=== PATIENT | female | born 1995 | race Caucasian/White ===

== ENCOUNTER 2020-07-20 13:17 | Inpatient (IN) | payer OTHER ==
[~2020-07-20 13:17] MED LIST: Morphine 4 MG/ML Syringe IVPUSH ONE; Ondansetron 4 MG/2 ML SDV IVPUSH ONE; Sodium Chloride 0.9% 1,000 ML IV ONE; Sodium Chloride 0.9% 10 ML Syringe FLUSH PRN; Sodium Chloride 0.9% 2.5 ML Syringe FLUSH PRN
--- NOTE | 2020-07-20 13:21 | EDM.PDOC ---
ED HPI GENERAL MEDICAL PROBLEM - General Chief Complaint: Abdominal Pain Stated Complaint: PANCREATITIS Time Seen by Provider: 07/20/20 13:17 Source of Information: Reports: Patient History Limitations: Reports: No Limitations - History of Present Illness INITIAL COMMENTS - FREE TEXT/NARRATIVE: 24-year-old female past medical history recurrent pancreatitis presents for midepigastric abdominal pain consistent with prior episodes of pancreatitis. Patient states that she has had this since she was 7 years old on and off. She notes that she has had several work-ups including endoscopies and scans and nobody can tell her why she keeps getting pancreatitis. She has never had abdominal surgeries and still has her gallbladder and appendix. She notes that last night she was feeling okay and had "1 sip of alcohol". Woke up this morning with pain in her midepigastrium radiating to bilateral upper abdomen and back. Associated with nausea and vomiting. No fevers, chest pain, shortness of breath. abdomen Pain Score (Numeric/FACES): 8 - Related Data Allergies Allergy/AdvReac Type Severity Reaction Status Date / Time No Known Allergies Allergy Verified 07/20/20 15:23 Home Meds: Home Meds . [No Known Home Meds] 07/20/20 [History] ED ROS GENERAL - Review of Systems Review Of Systems: Comprehensive ROS is negative, except as noted in HPI. ED EXAM, GENERAL - Physical Exam Exam: See Below Exam Limited By: No Limitations General Appearance: Alert, WD/WN, Other (Uncomfortable appearing) Throat/Mouth: Normal Voice, No Airway Compromise Head: Atraumatic, Normocephalic Neck: Normal Inspection Respiratory/Chest: No Respiratory Distress, Lungs Clear, Normal Breath Sounds, No Accessory Muscle Use Cardiovascular: Normal Peripheral Pulses, Regular Rate, Rhythm GI/Abdominal: Soft, Other (Midepigastric tenderness to palpation without guarding) Extremities: Normal Inspection Neurological: Alert Psychiatric: Normal Affect, Normal Mood Skin Exam: Warm, Dry, Intact, Normal Color Course - Vital Signs Last Recorded V/S: Last Vital Signs Temp 97.3 F 07/20/20 13:25 Pulse 65 07/20/20 15:16 Resp 18 07/20/20 15:16 BP 110/66 07/20/20 15:16 Pulse Ox 100 07/20/20 15:16 - Orders/Labs/Meds Orders: Active Orders 24 hr Category Date Time Status Sodium Chloride 0.9% [Normal Saline] 1,000 ml Med 07/20/20 16:13 Ordered IV .Bolus Sodium Chloride 0.9% [Saline Flush] Med 07/20/20 13:17 Active 10 ml FLUSH ASDIRECTED PRN Sodium Chloride 0.9% [Saline Flush] Med 07/20/20 13:17 Active 2.5 ml FLUSH ASDIRECTED PRN Saline Lock Insert [OM.PC] Stat Oth 07/20/20 13:17 Ordered Medication Orders Sodium Chloride (Saline Flush) 10 ml FLUSH ASDIRECTED PRN PRN Reason: Keep Vein Open Last Admin: 07/20/20 14:52 Dose: 10 ml Documented by: ANTONIO Sodium Chloride (Saline Flush) 2.5 ml FLUSH ASDIRECTED PRN PRN Reason: Keep Vein Open Last Admin: 07/20/20 14:51 Dose: 2.5 ml Documented by: [id number] Labs: Laboratory Tests 07/20/20 07/20/20 07/20/20 Range/Units 13:33 13:33 13:33 WBC 12.48 H (4.0-11.0) K/uL RBC 5.46 (4.30-5.90) M/uL Hgb 14.4 (12.0-16.0) g/dL Hct 44.8 (36.0-46.0) % MCV 82.1 (80.0-98.0) fL MCH 26.4 L (27.0-32.0) pg MCHC 32.1 (31.0-37.0) g/dL RDW Std Deviation 42.3 (28.0-62.0) fl RDW Coeff of Maryam 14 (11.0-15.0) % Plt Count 189 (150-400) K/uL MPV 9.60 (7.40-12.00) fL Neut % (Auto) 70.3 (48.0-80.0) % Lymph % (Auto) 18.1 (16.0-40.0) % [place] % (Auto) 8.8 (0.0-15.0) % Eos % (Auto) 2.6 (0.0-7.0) % Baso % (Auto) 0.2 (0.0-1.5) % Neut # (Auto) 8.8 H (1.4-5.7) K/uL Lymph # (Auto) 2.3 (0.6-2.4) K/uL [place] # (Auto) 1.1 H (0.0-0.8) K/uL Eos # (Auto) 0.3 (0.0-0.7) K/uL Baso # (Auto) 0.0 (0.0-0.1) K/uL Nucleated RBC % 0.0 /100WBC Nucleated RBCs # 0 K/uL Lactate 1.3 (0.20-2.00) mmol/L Sodium 142 (136-145) mmol/L Potassium 3.8 (3.5-5.1) mmol/L Chloride 105 (98-107) mmol/L Carbon Dioxide 26.3 (21.0-32.0) mmol/L BUN 12 (7.0-18.0) mg/dL Creatinine 0.9 (0.6-1.0) mg/dL Est Cr Clr Drug Dosing TNP Estimated GFR (MDRD) > 60.0 ml/min Glucose 96 (74-106) mg/dL Calcium 9.3 (8.5-10.1) mg/dL Magnesium 1.8 (1.8-2.4) mg/dL Total Bilirubin 0.7 (0.2-1.0) mg/dL AST 34 (15-37) IU/L ALT 76 H (14-63) IU/L Alkaline Phosphatase 88 (46-116) U/L Total Protein 7.5 (6.4-8.2) g/dL Albumin 4.1 (3.4-5.0) g/dL Globulin 3.4 (2.6-4.0) g/dL Albumin/Globulin Ratio 1.2 (0.9-1.6) Triglycerides (0-200) mg/dL Lipase 07623 H (73-393) U/L HCG, Qual (NEG) SARS-CoV-2 RNA (JADA) (NEGATIVE) 07/20/20 07/20/20 07/20/20 Range/Units 13:33 13:33 15:25 WBC (4.0-11.0) K/uL RBC (4.30-5.90) M/uL Hgb (12.0-16.0) g/dL Hct (36.0-46.0) % MCV (80.0-98.0) fL MCH (27.0-32.0) pg MCHC (31.0-37.0) g/dL RDW Std Deviation (28.0-62.0) fl RDW Coeff of Maryam (11.0-15.0) % Plt Count (150-400) K/uL MPV (7.40-12.00) fL Neut % (Auto) (48.0-80.0) % Lymph % (Auto) (16.0-40.0) % [place] % (Auto) (0.0-15.0) % Eos % (Auto) (0.0-7.0) % Baso % (Auto) (0.0-1.5) % Neut # (Auto) (1.4-5.7) K/uL Lymph # (Auto) (0.6-2.4) K/uL [place] # (Auto) (0.0-0.8) K/uL Eos # (Auto) (0.0-0.7) K/uL Baso # (Auto) (0.0-0.1) K/uL Nucleated RBC % /100WBC Nucleated RBCs # K/uL Lactate (0.20-2.00) mmol/L Sodium (136-145) mmol/L Potassium (3.5-5.1) mmol/L Chloride (98-107) mmol/L Carbon Dioxide (21.0-32.0) mmol/L BUN (7.0-18.0) mg/dL Creatinine (0.6-1.0) mg/dL Est Cr Clr Drug Dosing Estimated GFR (MDRD) ml/min Glucose (74-106) mg/dL Calcium (8.5-10.1) mg/dL Magnesium (1.8-2.4) mg/dL Total Bilirubin (0.2-1.0) mg/dL AST (15-37) IU/L ALT (14-63) IU/L Alkaline Phosphatase (46-116) U/L Total Protein (6.4-8.2) g/dL Albumin (3.4-5.0) g/dL Globulin (2.6-4.0) g/dL Albumin/Globulin Ratio (0.9-1.6) Triglycerides 210 H (0-200) mg/dL Lipase (73-393) U/L HCG, Qual NEGATIVE (NEG) SARS-CoV-2 RNA (JADA) NEGATIVE (NEGATIVE) Meds: Medications Generic Name Dose Route Start Last Admin Trade Name Michael PRN Reason Stop Dose Admin Sodium Chloride 10 ml 07/20/20 13:17 07/20/20 14:52 Saline Flush FLUSH 10 ml ASDIRECTED PRN Administration Keep Vein Open Sodium Chloride 2.5 ml 07/20/20 13:17 07/20/20 14:51 Saline Flush FLUSH 2.5 ml ASDIRECTED PRN Administration Keep Vein Open Discontinued Medications Generic Name Dose Route Start Last Admin Trade Name Masonq PRN Reason Stop Dose Admin Hydromorphone HCl 1 mg 07/20/20 14:45 07/20/20 14:50 Dilaudid IVPUSH 07/20/20 14:46 1 mg ONETIME ONE Administration Hydromorphone HCl 1 mg 07/20/20 15:11 07/20/20 15:15 Dilaudid IVPUSH 07/20/20 15:12 1 mg ONETIME ONE Administration Sodium Chloride 1,000 mls @ 999 mls/hr 07/20/20 13:17 07/20/20 13:34 Normal Saline IV 07/20/20 14:17 999 mls/hr .Bolus ONE Administration Iopamidol 72 ml 07/20/20 14:42 07/20/20 14:42 Isovue Multipack-370 (76%) IVPUSH 07/20/20 14:43 72 ml ONETIME ONE Administration Morphine Sulfate 4 mg 07/20/20 13:17 07/20/20 13:37 Morphine IVPUSH 07/20/20 13:18 4 mg ONETIME ONE Administration Ondansetron HCl 4 mg 07/20/20 13:17 07/20/20 13:35 Zofran IVPUSH 07/20/20 13:18 4 mg ONETIME ONE Administration - Re-Assessments/Exams Free Text/Narrative Re-Assessment/Exam: 07/20/20 13:33 We will get abdominal labs. Will get CT abdomen pelvis. Will treat pain and nausea symptomatically. We will follow up results and disposition accordingly. 07/20/20 14:55 Patient's pain poorly controlled. 1 mg Dilaudid ordered for better control of pain. 07/20/20 16:14 Will admit for pain control Departure - Departure Time of Disposition: 16:14 Disposition: Admitted As Inpatient 66 Condition: Good (pancreatiti) Clinical Impression: Pancreatitis Qualifiers: Chronicity: acute Pancreatitis type: unspecified pancreatitis type Acute pancreatitis complication: unspecified Qualified Code(s): K85.90 - Acute pancreatitis without necrosis or infection, unspecified - Discharge Information Referrals: PCP,Not In Area [Primary Care Provider] - Forms: ED Department Discharge Sepsis Event Note (ED) - Focused Exam Vital Signs: Vital Signs Temp Pulse Resp BP Pulse Ox 07/20/20 15:16 65 18 110/66 100 07/20/20 13:25 97.3 F 68 17 120/82 98 - My Orders Last 24 Hours: My Active Orders 07/20/20 13:17 Sodium Chloride 0.9% [Saline Flush] 10 ml FLUSH ASDIRECTED PRN Sodium Chloride 0.9% [Saline Flush] 2.5 ml FLUSH ASDIRECTED PRN Saline Lock Insert [OM.PC] Stat 07/20/20 16:13 Sodium Chloride 0.9% [Normal Saline] 1,000 ml IV .Bolus - Assessment/Plan Last 24 Hours: My Active Orders 07/20/20 13:17 Sodium Chloride 0.9% [Saline Flush] 10 ml FLUSH ASDIRECTED PRN Sodium Chloride 0.9% [Saline Flush] 2.5 ml FLUSH ASDIRECTED PRN Saline Lock Insert [OM.PC] Stat 07/20/20 16:13 Sodium Chloride 0.9% [Normal Saline] 1,000 ml IV .Bolus
[2020-07-20 14:02] LABS: BLOOD UREA NITROGEN,BUN 12 mg/dL (7.0-18.0); CARBON DIOXIDE,CO2 26.3 mmol/L (21.0-32.0); CHLORIDE,CL 105 mmol/L (98-107); GLUCOSE RANDOM 96 mg/dL (74-106); POTASSIUM,K 3.8 mmol/L (3.5-5.1); SODIUM,NA 142 mmol/L (136-145)
[2020-07-20] MEDS ORDERED: Iopamidol 755 MG/ML 500 ML Multipack Bottle IVPUSH ONE (14:42)
[2020-07-20] MEDS ORDERED: HYDROmorphone 1 MG/ML Syringe IVPUSH ONE ×3 (14:45→17:13)
--- NOTE | 2020-07-20 15:07 | CT ---
INDICATION: Abdominal pain, history of recurrent pancreatitis. One month . TECHNIQUE: IV contrast-enhanced CT abdomen and pelvis. 72 mL Isovue-270 injected. FINDINGS: Fluid and inflammatory change around the pancreas consistent with acute pancreatitis. No evidence for parenchymal necrosis. No evidence for pseudocyst. No pancreatic duct or biliary dilation. Gallbladder is normal. Liver, spleen, adrenal glands, kidneys appear normal. Bowel is unremarkable. No free air or adenopathy. Uterus and adnexa are unremarkable. IMPRESSION: Acute pancreatitis. Please note that all CT scans at this facility use dose modulation, iterative reconstruction, and/or weight-based dosing when appropriate to reduce radiation dose to as low as reasonably achievable. Dictated by Feliberto Mcleod MD @ Jul 20 2020 3:05PM Signed by Dr. Feliberto Mcleod @ Jul 20 2020 3:05PM
[2020-07-20 15:19] LABS: LIPASE 49342 U/L (73-393)
[2020-07-20] MEDS ORDERED: Sodium Chloride 0.9% 1,000 ML IV ONE ×3 (16:13→19:21)
--- NOTE | 2020-07-20 16:29 | PCM.HP.2 ---
H&P History of Present Illness - General Date of Service: 07/20/20 Admit Problem/Dx: Admission Diagnosis/Problem Admission Diagnosis/Problem Pancreatitis Source of Information: Patient History Limitations: Reports: No Limitations - History of Present Illness Initial Comments - Free Text/Narative: Patient is a 24-year-old female with a significant past medical history of recu rrent pancreatitis with no known etiology presenting to the ED with abdominal pain which she endorses feels similar to episodes of pancreatitis in the past.. Patient has had pancreatitis since the age of 7 and despite numerous exhaustive work-ups (in [place], [place]) including endoscopies and abdominal scans, no etiology could be discovered. Endorsed to ER physician no significant alcohol use but did have "one sip" last night. Patient otherwise denies any fevers, chills, chest pain, shortness of breath. Positive nausea and vomiting. ED course: CT abdomen pelvis: Consistent with acute pancreatitis without any evidence of parenchymal necrosis. No evidence of pseudocyst. No pancreatic duct/biliary dilation. Gallbladder is normal; bowel is unremarkable Received 2 L normal saline IV, +4 mg morphine x1 and hydromorphone 1 mg x 2 for pain control Bedside: Currently Nauseous but able to speak in full sentences. Endorses pain began this AM after eating 1/2 bowl of cereal. tried 2 tabs of Tylenol w. no relief. Mentions similar story as above Last major hospitalizations for pancreatitis was 12 years ago but has had numerous "smaller" episodes since then, mostly brought on by eating a fatty meal. Last heavy meal was last night; pt had "[place]" for dinner and "a sip of alcohol". Denies any significant family history and states she is otherwise in good shape. Denies use of prescription, illicit and or other drugs Denies any surgical procedures. abdomen Pain Score (Numeric/FACES): 8 - Related Data Allergies/Adverse Reactions: Allergies Allergy/AdvReac Type Severity Reaction Status Date / Time No Known Allergies Allergy Verified 07/20/20 15:23 Home Medications: Home Meds . [No Known Home Meds] 07/20/20 [History] Past Medical History Gastrointestinal History: Reports: Pancreatitis - Past Surgical History GI Surgical History: Reports: None Social & Family History - Family History Family Medical History: No Pertinent Family History - Tobacco Use Tobacco Use Status *Q: Never Tobacco User Second Hand Smoke Exposure: No - Caffeine Use Caffeine Use: Reports: None - Recreational Drug Use Recreational Drug Use: No H&P Review of Systems - Review of Systems: Review Of Systems: See Below General: Reports: No Symptoms HEENT: Reports: No Symptoms Pulmonary: Reports: No Symptoms Cardiovascular: Reports: No Symptoms Gastrointestinal: Reports: Abdominal Pain, Decreased Appetite, Nausea, Vomiting. Denies: Constipation, Diarrhea, Hematochezia Genitourinary: Reports: No Symptoms Musculoskeletal: Reports: No Symptoms Skin: Reports: No Symptoms Psychiatric: Reports: No Symptoms Neurological: Reports: No Symptoms. Denies: Dizziness, Headache Exam - Exam Exam: See Below - Vital Signs Vital Signs: Last Vital Signs Temp 97.3 F 07/20/20 13:25 Pulse 65 07/20/20 15:16 Resp 18 07/20/20 15:16 BP 110/66 07/20/20 15:16 Pulse Ox 100 07/20/20 15:16 Weight: 63 kg - Exam Quality Assessment: No: Supplemental Oxygen General: Alert, Oriented HEENT: EOMI, Mucosa Moist & [place] Neck: Supple Lungs: Clear to Auscultation, Normal Respiratory Effort Cardiovascular: Regular Rate, Regular Rhythm GI/Abdominal Exam: Other (diffuse tenderness w.o organomegaly ) Extremities: Normal Inspection Psychiatric: Alert - Patient Data Lab Results Last 24 hrs: Laboratory Results - last 24 hr 07/20/20 07/20/20 07/20/20 Range/Units 13:33 13:33 13:33 WBC 12.48 H (4.0-11.0) K/uL RBC 5.46 (4.30-5.90) M/uL Hgb 14.4 (12.0-16.0) g/dL Hct 44.8 (36.0-46.0) % MCV 82.1 (80.0-98.0) fL MCH 26.4 L (27.0-32.0) pg MCHC 32.1 (31.0-37.0) g/dL RDW Std Deviation 42.3 (28.0-62.0) fl RDW Coeff of Maryam 14 (11.0-15.0) % Plt Count 189 (150-400) K/uL MPV 9.60 (7.40-12.00) fL Neut % (Auto) 70.3 (48.0-80.0) % Lymph % (Auto) 18.1 (16.0-40.0) % [place] % (Auto) 8.8 (0.0-15.0) % Eos % (Auto) 2.6 (0.0-7.0) % Baso % (Auto) 0.2 (0.0-1.5) % Neut # (Auto) 8.8 H (1.4-5.7) K/uL Lymph # (Auto) 2.3 (0.6-2.4) K/uL [place] # (Auto) 1.1 H (0.0-0.8) K/uL Eos # (Auto) 0.3 (0.0-0.7) K/uL Baso # (Auto) 0.0 (0.0-0.1) K/uL Nucleated RBC % 0.0 /100WBC Nucleated RBCs # 0 K/uL Lactate 1.3 (0.20-2.00) mmol/L Sodium 142 (136-145) mmol/L Potassium 3.8 (3.5-5.1) mmol/L Chloride 105 (98-107) mmol/L Carbon Dioxide 26.3 (21.0-32.0) mmol/L BUN 12 (7.0-18.0) mg/dL Creatinine 0.9 (0.6-1.0) mg/dL Est Cr Clr Drug Dosing TNP Estimated GFR (MDRD) > 60.0 ml/min Glucose 96 (74-106) mg/dL Calcium 9.3 (8.5-10.1) mg/dL Magnesium 1.8 (1.8-2.4) mg/dL Total Bilirubin 0.7 (0.2-1.0) mg/dL AST 34 (15-37) IU/L ALT 76 H (14-63) IU/L Alkaline Phosphatase 88 (46-116) U/L Total Protein 7.5 (6.4-8.2) g/dL Albumin 4.1 (3.4-5.0) g/dL Globulin 3.4 (2.6-4.0) g/dL Albumin/Globulin Ratio 1.2 (0.9-1.6) Triglycerides (0-200) mg/dL Lipase 29686 H (73-393) U/L HCG, Qual (NEG) SARS-CoV-2 RNA (JADA) (NEGATIVE) 07/20/20 07/20/20 07/20/20 Range/Units 13:33 13:33 15:25 WBC (4.0-11.0) K/uL RBC (4.30-5.90) M/uL Hgb (12.0-16.0) g/dL Hct (36.0-46.0) % MCV (80.0-98.0) fL MCH (27.0-32.0) pg MCHC (31.0-37.0) g/dL RDW Std Deviation (28.0-62.0) fl RDW Coeff of Maryam (11.0-15.0) % Plt Count (150-400) K/uL MPV (7.40-12.00) fL Neut % (Auto) (48.0-80.0) % Lymph % (Auto) (16.0-40.0) % [place] % (Auto) (0.0-15.0) % Eos % (Auto) (0.0-7.0) % Baso % (Auto) (0.0-1.5) % Neut # (Auto) (1.4-5.7) K/uL Lymph # (Auto) (0.6-2.4) K/uL [place] # (Auto) (0.0-0.8) K/uL Eos # (Auto) (0.0-0.7) K/uL Baso # (Auto) (0.0-0.1) K/uL Nucleated RBC % /100WBC Nucleated RBCs # K/uL Lactate (0.20-2.00) mmol/L Sodium (136-145) mmol/L Potassium (3.5-5.1) mmol/L Chloride (98-107) mmol/L Carbon Dioxide (21.0-32.0) mmol/L BUN (7.0-18.0) mg/dL Creatinine (0.6-1.0) mg/dL Est Cr Clr Drug Dosing Estimated GFR (MDRD) ml/min Glucose (74-106) mg/dL Calcium (8.5-10.1) mg/dL Magnesium (1.8-2.4) mg/dL Total Bilirubin (0.2-1.0) mg/dL AST (15-37) IU/L ALT (14-63) IU/L Alkaline Phosphatase (46-116) U/L Total Protein (6.4-8.2) g/dL Albumin (3.4-5.0) g/dL Globulin (2.6-4.0) g/dL Albumin/Globulin Ratio (0.9-1.6) Triglycerides 210 H (0-200) mg/dL Lipase (73-393) U/L HCG, Qual NEGATIVE (NEG) SARS-CoV-2 RNA (JADA) NEGATIVE (NEGATIVE) Result Diagrams: 07/20/20 13:33 07/20/20 13:33 Sepsis Event Note - Evaluation Sepsis Screening Result: No Definite Risk - Focused Exam Vital Signs: Vital Signs Temp Pulse Resp BP Pulse Ox 07/20/20 15:16 65 18 110/66 100 07/20/20 13:25 97.3 F 68 17 120/82 98 - Problem List (1) Pancreatitis SNOMED Code(s): 71262328 ICD Code: K85.90 - ACUTE PANCREATITIS WITHOUT NECROSIS OR INFECTION, UNSP S tatus: Acute Current Visit: Yes Qualifiers: Chronicity: acute Pancreatitis type: unspecified pancreatitis type Acute pancreatitis complication: unspecified Qualified Code(s): K85.90 - Acute pancreatitis without necrosis or infection, unspecified Problem List Initiated/Reviewed/Updated: Yes Orders Last 24hrs: Active Orders 24 hr Category Date Time Status Patient Status [ADT] Routine ADT 07/20/20 16:14 Active Sodium Chloride 0.9% [Normal Saline] 1,000 ml Med 07/20/20 16:13 Active IV .Bolus Sodium Chloride 0.9% [Saline Flush] Med 07/20/20 13:17 Active 10 ml FLUSH ASDIRECTED PRN Sodium Chloride 0.9% [Saline Flush] Med 07/20/20 13:17 Active 2.5 ml FLUSH ASDIRECTED PRN Saline Lock Insert [OM.PC] Stat Oth 07/20/20 13:17 Ordered Medication Orders Sodium Chloride (Normal Saline) 1,000 mls @ 999 mls/hr IV .Bolus ONE Stop: 07/20/20 17:13 Sodium Chloride (Saline Flush) 10 ml FLUSH ASDIRECTED PRN PRN Reason: Keep Vein Open Last Admin: 07/20/20 14:52 Dose: 10 ml Documented by: ANTONIO Sodium Chloride (Saline Flush) 2.5 ml FLUSH ASDIRECTED PRN PRN Reason: Keep Vein Open Last Admin: 07/20/20 14:51 Dose: 2.5 ml Documented by: ANTONIO Assessment/Plan Comment:: Assessment: 1. Acute pancreatitis of unknown etiology 2. Leukocytosis 3. Hypertriglyceridemia. 4. Covid negative. Plan Admit to observation. Full code. I's and O's per routine. vitals per routine. NPO Up ad heaven. 1. Acute pancreatitis: CT abdomen pelvis did not show any other significant causes for pancreatitis at this time (stone or otherwise) ; will confirm w. RUQ u/s . We will continue with IV fluids, bowel rest and pain control. Ransons 0 BISAP 0 Fluids: NS 200 cc/hr (received 2 Liter NS bolus in ED) Pain control: Dilaudid 0.5 q 2hours Ibuprofen Leukocytosis: marginally elevated : most likely reactive in light of significant pancreatitis /dehydration ; continue to monitor Recheck CBC/CMP in AM. Will recheck Lipase once in AM to monitor for initial trend. Elevated triglycerides/Borderline high: elevated but does not seem to be the current etiology for her pancreatitis ; may consider fibric acid derivative if n ecessary but unlikely. No other easily identifiable causes except "fatty meal"/ dinner yesterday (e.g: no recent procedures, trauamas, ingestion of ilicit drugs per patient , infections No other significant PMH per patient.
[2020-07-20] MEDS ORDERED: Ondansetron 4 MG/2 ML SDV IVPUSH ONE ×2 (17:00→17:05)
[2020-07-20] MEDS ORDERED: Ondansetron 4 MG/2 ML SDV IVPUSH PRN (17:13)
[2020-07-20] MEDS ORDERED: HYDROmorphone 1 MG/ML Syringe IVPUSH PRN (17:14)
[2020-07-20] MEDS ORDERED: Promethazine 25 MG/ML SDV IM ONE (17:51)
[2020-07-20] MEDS: Heparin Sodium 5,000 Units/ML Vial SUBCUT SCH (18:03)
[2020-07-20] MEDS: Ibuprofen 400 MG Tab PO PRN (18:45)
[2020-07-20] MEDS ORDERED: LORazepam 2 MG/ML SDV IVPUSH ONE (18:52)
[2020-07-20] MEDS ORDERED: Promethazine 25 MG Tab PO PRN (18:57)
[2020-07-20] MEDS ORDERED: Melatonin 3 MG Tab PO PRN (18:58)
[2020-07-20] MEDS ORDERED: Promethazine 25 MG/ML SDV IM PRN (19:43)
--- NOTE | 2020-07-20 20:30 | US ---
INDICATION: Pancreatitis, elevated lipase, evaluate for right upper quadrant stone/biliary dilation. TECHNIQUE: Right upper quadrant ultrasound. COMPARISON: Abdomen pelvis CT of the same day. FINDINGS: The pancreas appears somewhat edematous compatible with patient`s known pancreatitis. Gallbladder is normal without stones, wall thickness, or pericholecystic fluid. Negative sonographic Martell`s sign. No intra or extrahepatic bile duct dilation. Common bile duct measures 2 mm. Right kidney is sonographically normal without mass or hydronephrosis and measures 11.4 cm pole to pole. Liver has normal echogenicity with no solid mass. Normal flow direction in the portal vein. Normal caliber proximal aorta. IMPRESSION: 1. No gallstones or biliary dilation. 2. Somewhat edematous pancreas consistent with pancreatitis. 3. Otherwise normal right upper quadrant ultrasound. Dictated by Feliberto Mcleod MD @ Jul 20 2020 8:26PM Signed by Dr. Feliberto Mcleod @ Jul 20 2020 8:30PM
[2020-07-20] MEDS: Sodium Chloride 0.9% 1,000 ML IV SCH (21:37)
[2020-07-20] MEDS: HYDROmorphone 1 MG/ML Syringe IVPUSH PRN (23:08)
[2020-07-20] MEDS: Ondansetron 4 MG/2 ML SDV IVPUSH PRN (23:15)
[2020-07-21] MEDS: HYDROmorphone 1 MG/ML Syringe IVPUSH PRN ×9 (01:57→22:47)
[2020-07-21] MEDS: Sodium Chloride 0.9% 1,000 ML IV SCH ×4 (02:48→20:20)
[2020-07-21] MEDS: Heparin Sodium 5,000 Units/ML Vial SUBCUT SCH ×2 (04:50→17:25)
[2020-07-21] MEDS: Ondansetron 4 MG/2 ML SDV IVPUSH PRN (05:00)
[2020-07-21 06:16] LABS: BLOOD UREA NITROGEN,BUN 5 mg/dL (7.0-18.0); CARBON DIOXIDE,CO2 26.9 mmol/L (21.0-32.0); CHLORIDE,CL 105 mmol/L (98-107); GLUCOSE RANDOM 122 mg/dL (74-106); POTASSIUM,K 3.6 mmol/L (3.5-5.1); SODIUM,NA 141 mmol/L (136-145)
[2020-07-21 06:50] LABS: LIPASE 14821 U/L (73-393)
[2020-07-21] MEDS: Ibuprofen 400 MG Tab PO PRN ×2 (07:47→18:24)
[2020-07-21] MEDS: Omeprazole 20 MG Cap.CR PO SCH (07:48)
--- NOTE | 2020-07-21 09:03 | PCM.PN ---
- General Info Date of Service: 07/21/20 Admission Dx/Problem (Free Text): Admission Diagnosis/Problem Admission Diagnosis/Problem Pancreatitis Subjective Update: seen at bedside, with her dad, states she feels nausea is better but pain is still bothering her, - Review of Systems General: Reports: Weakness, Fatigue. Denies: Fever Pulmonary: Denies: Shortness of Breath, Pleuritic Chest Pain Cardiovascular: Denies: Chest Pain, Palpitations Gastrointestinal: Reports: Abdominal Pain, Decreased Appetite, Flatus. Denies: Constipation, Difficulty Swallowing Genitourinary: Denies: Dysuria, Frequency, Burning Musculoskeletal: Denies: Neck Pain, Shoulder Pain, Arm Pain - Patient Data Vitals - Most Recent: Last Vital Signs Temp 37.7 C 07/21/20 07:47 Pulse 89 07/21/20 07:43 Resp 18 07/21/20 07:43 BP 100/75 07/21/20 07:43 Pulse Ox 95 07/21/20 07:43 Weight - Most Recent: 60.645 kg I&O - Last 24 Hours: Intake & Output 07/20/20 07/21/20 07/21/20 22:59 06:59 14:59 Intake Total 3624 Output Total 2100 Balance 1524 Lab Results Last 24 Hours: Laboratory Results - last 24 hr 07/20/20 07/20/20 07/20/20 Range/Units 13:33 13:33 13:33 WBC 12.48 H (4.0-11.0) K/uL RBC 5.46 (4.30-5.90) M/uL Hgb 14.4 (12.0-16.0) g/dL Hct 44.8 (36.0-46.0) % MCV 82.1 (80.0-98.0) fL MCH 26.4 L (27.0-32.0) pg MCHC 32.1 (31.0-37.0) g/dL RDW Std Deviation 42.3 (28.0-62.0) fl RDW Coeff of Maryam 14 (11.0-15.0) % Plt Count 189 (150-400) K/uL MPV 9.60 (7.40-12.00) fL Neut % (Auto) 70.3 (48.0-80.0) % Lymph % (Auto) 18.1 (16.0-40.0) % Sabine % (Auto) 8.8 (0.0-15.0) % Eos % (Auto) 2.6 (0.0-7.0) % Baso % (Auto) 0.2 (0.0-1.5) % Neut # (Auto) 8.8 H (1.4-5.7) K/uL Lymph # (Auto) 2.3 (0.6-2.4) K/uL Sabine # (Auto) 1.1 H (0.0-0.8) K/uL Eos # (Auto) 0.3 (0.0-0.7) K/uL Baso # (Auto) 0.0 (0.0-0.1) K/uL Nucleated RBC % 0.0 /100WBC Nucleated RBCs # 0 K/uL Lactate 1.3 (0.20-2.00) mmol/L Sodium 142 (136-145) mmol/L Potassium 3.8 (3.5-5.1) mmol/L Chloride 105 (98-107) mmol/L Carbon Dioxide 26.3 (21.0-32.0) mmol/L BUN 12 (7.0-18.0) mg/dL Creatinine 0.9 (0.6-1.0) mg/dL Est Cr Clr Drug Dosing TNP Estimated GFR (MDRD) > 60.0 ml/min Glucose 96 (74-106) mg/dL Calcium 9.3 (8.5-10.1) mg/dL Magnesium 1.8 (1.8-2.4) mg/dL Total Bilirubin 0.7 (0.2-1.0) mg/dL AST 34 (15-37) IU/L ALT 76 H (14-63) IU/L Alkaline Phosphatase 88 (46-116) U/L Total Protein 7.5 (6.4-8.2) g/dL Albumin 4.1 (3.4-5.0) g/dL Globulin 3.4 (2.6-4.0) g/dL Albumin/Globulin Ratio 1.2 (0.9-1.6) Triglycerides (0-200) mg/dL Lipase 10377 H (73-393) U/L HCG, Qual (NEG) SARS-CoV-2 RNA (JADA) (NEGATIVE) 07/20/20 07/20/20 07/20/20 Range/Units 13:33 13:33 15:25 WBC (4.0-11.0) K/uL RBC (4.30-5.90) M/uL Hgb (12.0-16.0) g/dL Hct (36.0-46.0) % MCV (80.0-98.0) fL MCH (27.0-32.0) pg MCHC (31.0-37.0) g/dL RDW Std Deviation (28.0-62.0) fl RDW Coeff of Maryam (11.0-15.0) % Plt Count (150-400) K/uL MPV (7.40-12.00) fL Neut % (Auto) (48.0-80.0) % Lymph % (Auto) (16.0-40.0) % Sabine % (Auto) (0.0-15.0) % Eos % (Auto) (0.0-7.0) % Baso % (Auto) (0.0-1.5) % Neut # (Auto) (1.4-5.7) K/uL Lymph # (Auto) (0.6-2.4) K/uL Sabine # (Auto) (0.0-0.8) K/uL Eos # (Auto) (0.0-0.7) K/uL Baso # (Auto) (0.0-0.1) K/uL Nucleated RBC % /100WBC Nucleated RBCs # K/uL Lactate (0.20-2.00) mmol/L Sodium (136-145) mmol/L Potassium (3.5-5.1) mmol/L Chloride (98-107) mmol/L Carbon Dioxide (21.0-32.0) mmol/L BUN (7.0-18.0) mg/dL Creatinine (0.6-1.0) mg/dL Est Cr Clr Drug Dosing Estimated GFR (MDRD) ml/min Glucose (74-106) mg/dL Calcium (8.5-10.1) mg/dL Magnesium (1.8-2.4) mg/dL Total Bilirubin (0.2-1.0) mg/dL AST (15-37) IU/L ALT (14-63) IU/L Alkaline Phosphatase (46-116) U/L Total Protein (6.4-8.2) g/dL Albumin (3.4-5.0) g/dL Globulin (2.6-4.0) g/dL Albumin/Globulin Ratio (0.9-1.6) Triglycerides 210 H (0-200) mg/dL Lipase (73-393) U/L HCG, Qual NEGATIVE (NEG) SARS-CoV-2 RNA (JADA) NEGATIVE (NEGATIVE) 07/21/20 07/21/20 Range/Units 05:54 05:54 WBC 9.79 (4.0-11.0) K/uL RBC 4.71 (4.30-5.90) M/uL Hgb 12.2 (12.0-16.0) g/dL Hct 39.1 (36.0-46.0) % MCV 83.0 (80.0-98.0) fL MCH 25.9 L (27.0-32.0) pg MCHC 31.2 (31.0-37.0) g/dL RDW Std Deviation 43.1 (28.0-62.0) fl RDW Coeff of Maryam 14 (11.0-15.0) % Plt Count 151 (150-400) K/uL MPV 9.20 (7.40-12.00) fL Neut % (Auto) 82.2 H (48.0-80.0) % Lymph % (Auto) 9.6 L (16.0-40.0) % Sabine % (Auto) 7.4 (0.0-15.0) % Eos % (Auto) 0.7 (0.0-7.0) % Baso % (Auto) 0.1 (0.0-1.5) % Neut # (Auto) 8.1 H (1.4-5.7) K/uL Lymph # (Auto) 0.9 (0.6-2.4) K/uL Sabine # (Auto) 0.7 (0.0-0.8) K/uL Eos # (Auto) 0.1 (0.0-0.7) K/uL Baso # (Auto) 0.0 (0.0-0.1) K/uL Nucleated RBC % 0.0 /100WBC Nucleated RBCs # 0 K/uL Lactate (0.20-2.00) mmol/L Sodium 141 (136-145) mmol/L Potassium 3.6 (3.5-5.1) mmol/L Chloride 105 (98-107) mmol/L Carbon Dioxide 26.9 (21.0-32.0) mmol/L BUN 5 L (7.0-18.0) mg/dL Creatinine 0.8 (0.6-1.0) mg/dL Est Cr Clr Drug Dosing 93.64 Estimated GFR (MDRD) > 60.0 ml/min Glucose 122 H (74-106) mg/dL Calcium 7.7 L (8.5-10.1) mg/dL Magnesium (1.8-2.4) mg/dL Total Bilirubin 0.7 (0.2-1.0) mg/dL AST 21 (15-37) IU/L ALT 51 (14-63) IU/L Alkaline Phosphatase 66 (46-116) U/L Total Protein 5.7 L (6.4-8.2) g/dL Albumin 2.9 L (3.4-5.0) g/dL Globulin 2.8 (2.6-4.0) g/dL Albumin/Globulin Ratio 1.0 (0.9-1.6) Triglycerides (0-200) mg/dL Lipase 74993 H (73-393) U/L HCG, Qual (NEG) SARS-CoV-2 RNA (JADA) (NEGATIVE) Med Orders - Current: Current Medications Heparin Sodium (Porcine) (Heparin Sodium) 5,000 units SUBCUT Q12H [facility] Last Admin: 07/21/20 04:50 Dose: 5,000 units Documented by: Hydromorphone HCl (Dilaudid) 0.5 mg IVPUSH Q1H PRN PRN Reason: Pain Last Admin: 07/21/20 04:57 Dose: 0.5 mg Documented by: Sodium Chloride (Normal Saline) 1,000 mls @ 200 mls/hr IV ASDIRECTED [facility] Last Admin: 07/21/20 07:50 Dose: 200 mls/hr Documented by: Ibuprofen (Motrin) 400 mg PO Q6H PRN PRN Reason: Pain (mild 1-3) Last Admin: 07/21/20 07:47 Dose: 400 mg Documented by: Melatonin (Melatonin) 3 mg PO BEDTIME PRN PRN Reason: Insomnia Omeprazole (Omeprazole) 20 mg PO ACBREAKFAST KASSANDRA Last Admin: 07/21/20 07:48 Dose: 20 mg Documented by: Ondansetron HCl (Zofran) 4 mg IVPUSH Q4H PRN PRN Reason: Nausea/Vomiting Last Admin: 07/21/20 05:00 Dose: 4 mg Documented by: Promethazine HCl (Phenergan) 12.5 mg IM Q6H PRN PRN Reason: Nausea/Vomiting Sodium Chloride (Saline Flush) 10 ml FLUSH ASDIRECTED PRN PRN Reason: Keep Vein Open Last Admin: 07/20/20 14:52 Dose: 10 ml Documented by: Sodium Chloride (Saline Flush) 2.5 ml FLUSH ASDIRECTED PRN PRN Reason: Keep Vein Open Last Admin: 07/20/20 14:51 Dose: 2.5 ml Documented by: Discontinued Medications Hydromorphone HCl (Dilaudid) 1 mg IVPUSH ONETIME ONE Stop: 07/20/20 14:46 Last Admin: 07/20/20 14:50 Dose: 1 mg Documented by: Hydromorphone HCl (Dilaudid) 1 mg IVPUSH ONETIME ONE Stop: 07/20/20 15:12 Last Admin: 07/20/20 15:15 Dose: 1 mg Documented by: Hydromorphone HCl (Dilaudid) 1 mg IVPUSH ONETIME ONE Stop: 07/20/20 17:14 Last Admin: 07/20/20 17:20 Dose: 1 mg Documented by: Hydromorphone HCl (Dilaudid) 0.5 mg IVPUSH Q2H PRN PRN Reason: Pain Sodium Chloride (Normal Saline) 1,000 mls @ 999 mls/hr IV .Bolus ONE Stop: 07/20/20 14:17 Last Admin: 07/20/20 13:34 Dose: 999 mls/hr Documented by: Sodium Chloride (Normal Saline) 1,000 mls @ 999 mls/hr IV .Bolus ONE Stop: 07/20/20 17:13 Last Admin: 07/20/20 17:02 Dose: 999 mls/hr Documented by: Sodium Chloride (Normal Saline) 1,000 mls @ 999 mls/hr IV STAT ONE Stop: 07/20/20 20:06 Last Admin: 07/20/20 19:27 Dose: 999 mls/hr Documented by: Sodium Chloride (Normal Saline) 1,000 mls @ 999 mls/hr IV STAT ONE Stop: 07/20/20 20:21 Last Admin: 07/20/20 20:44 Dose: 999 mls/hr Documented by: Iopamidol (Isovue Multipack-370 (76%)) 72 ml IVPUSH ONETIME ONE Stop: 07/20/20 14:43 Last Admin: 07/20/20 14:42 Dose: 72 ml Documented by: Lorazepam (Ativan) 1 mg IVPUSH ONETIME ONE Stop: 07/20/20 18:53 Last Admin: 07/20/20 19:24 Dose: 1 mg Documented by: Morphine Sulfate (Morphine) 4 mg IVPUSH ONETIME ONE Stop: 07/20/20 13:18 Last Admin: 07/20/20 13:37 Dose: 4 mg Documented by: Ondansetron HCl (Zofran) 4 mg IVPUSH ONETIME ONE Stop: 07/20/20 13:18 Last Admin: 07/20/20 13:35 Dose: 4 mg Documented by: Ondansetron HCl (Zofran) 8 mg IVPUSH ONETIME ONE Stop: 07/20/20 17:01 Last Admin: 07/20/20 17:09 Dose: Not Given Documented by: Ondansetron HCl (Zofran) 4 mg IVPUSH ONETIME ONE Stop: 07/20/20 17:06 Last Admin: 07/20/20 17:07 Dose: 4 mg Documented by: Ondansetron HCl (Zofran) 4 mg IVPUSH Q6H PRN PRN Reason: Nausea/Vomiting Promethazine HCl (Phenergan) 12.5 mg IM ONETIME ONE Stop: 07/20/20 17:52 Last Admin: 07/20/20 18:06 Dose: 12.5 mg Documented by: Promethazine HCl (Phenergan) 25 mg PO Q6H PRN PRN Reason: Nausea/Vomiting - Exam General: Alert, Oriented Neck: Supple Lungs: Clear to Auscultation, Normal Respiratory Effort Cardiovascular: Regular Rate, Regular Rhythm GI/Abdominal Exam: Normal Bowel Sounds, Soft, Tender. No: Distended, Hepatomegaly, Splenomegaly Sepsis Event Note - Evaluation Sepsis Screening Result: No Definite Risk - Focused Exam Vital Signs: Vital Signs Temp Temp Pulse Resp BP Pulse Ox 07/21/20 07:47 37.7 C 07/21/20 07:43 37.7 C 89 18 100/75 95 07/21/20 04:35 36.6 C 88 18 109/56 L 98 07/20/20 23:21 36.7 C 85 18 116/69 96 - Problem List & Annotations (1) Pancreatitis SNOMED Code(s): 83702960 Code(s): K85.90 - ACUTE PANCREATITIS WITHOUT NECROSIS OR INFECTION, UNSP Status: Acute Current Visit: Yes Qualifiers: Chronicity: acute Pancreatitis type: unspecified pancreatitis type Acute pancreatitis complication: unspecified Qualified Code(s): K85.90 - Acute pancreatitis without necrosis or infection, unspecified - Problem List Review Problem List Initiated/Reviewed/Updated: Yes - Plan Plan:: Assessment: 1. Acute pancreatitis of unknown etiology 2. Leukocytosis 3. Hypertriglyceridemia. 4. Covid negative. Plan Admit to observation. Full code. I's and O's per routine. vitals per routine. 1. Acute pancreatitis: CT abdomen pelvis did not show any other significant causes for pancreatitis at this time (stone or otherwise) ;RUQ u/s noted . We will continue with IV fluids, bowel rest and pain control. Lipase trended down start clear diet May have to consider Idiopathic pancreatitis, given she developed it at an early age and most of the work up per patient has been insignificant including ERCP, MRCP, may consider autoimmune work up. Fluids: NS 200 cc/hr (received 2 Liter NS bolus in ED) Pain control: Dilaudid 0.5 q 2hours Ibuprofen Leukocytosis: resolved Elevated triglycerides/Borderline high: elevated but does not seem to be the current etiology for her pancreatitis ; may consider fibric acid derivative if necessary but unlikely. No other easily identifiable causes except "fatty meal"/ dinner yesterday (e.g: no recent procedures, trauamas, ingestion of ilicit drugs per patient , infections No other significant PMH per patient.
--- NOTE | 2020-07-21 23:04 | CR ---
INDICATION: Abdominal pain TECHNIQUE: Abdomen/Pelvis radiograph 1 view COMPARISON: None FINDINGS: Bowel: The bowel gas pattern is normal without evidence of bowel obstruction. The epigastrium is excluded and cannot be evaluated. Moderate gaseous distension of the colon is noted with a small to moderate amount of stool present. Soft tissue: No evidence of pneumoperitoneum present. No suspicious calcifications noted. Bone: Unremarkable for age. IMPRESSION: 1. Moderate gaseous distension of the colon is noted with a small to moderate amount of stool present. Dictated by Enoc Pedro MD @ 07/21/2020 11:02:28 PM Dictated by: Enoc Pedro MD @ 07/21/2020 23:02:31 (Electronically Signed)
[2020-07-22] MEDS: Sodium Chloride 0.9% 1,000 ML IV SCH ×3 (01:37→18:25)
[2020-07-22] MEDS: HYDROmorphone 1 MG/ML Syringe IVPUSH PRN ×7 (03:40→21:52)
[2020-07-22] MEDS: Heparin Sodium 5,000 Units/ML Vial SUBCUT SCH ×2 (05:24→17:04)
[2020-07-22 06:28] LABS: BLOOD UREA NITROGEN,BUN 3 mg/dL (7.0-18.0); CARBON DIOXIDE,CO2 25.8 mmol/L (21.0-32.0); CHLORIDE,CL 105 mmol/L (98-107); GLUCOSE RANDOM 88 mg/dL (74-106); SODIUM,NA 141 mmol/L (136-145)
[2020-07-22] MEDS: Omeprazole 20 MG Cap.CR PO SCH (06:58)
[2020-07-22] MEDS ORDERED: Potassium Chloride 20 MEQ Tab.ER PO ONE (08:20)
[2020-07-22] MEDS ORDERED: Acetaminophen 500 MG Tab PO PRN (08:27)
[2020-07-22] MEDS ORDERED: Sodium Chloride 0.9% with KCl 1,000 ML IV SCH (08:30)
--- NOTE | 2020-07-22 08:33 | PCM.PN ---
<Niki Mcarthur - Last Filed: 07/22/20 11:19> - General Info Date of Service: 07/22/20 Subjective Update: Endorses pain in abdomen but not as frequently; mentions N/V also improving but tried eating some [place] ice last night w. a repeat in worsening of the abdominal pain. Functional Status: Denies: Tolerating Diet - Review of Systems General: Reports: No Symptoms HEENT: Reports: No Symptoms Pulmonary: Reports: No Symptoms Gastrointestinal: Reports: Abdominal Pain, Nausea. Denies: Vomiting Genitourinary: Reports: No Symptoms Musculoskeletal: Reports: No Symptoms Skin: Reports: No Symptoms Neurological: Reports: No Symptoms - Patient Data Vitals - Most Recent: Last Vital Signs Temp 98.8 F 07/22/20 07:00 Pulse 96 07/22/20 07:00 Resp 14 07/22/20 07:00 BP 107/67 07/22/20 07:00 Pulse Ox 96 07/22/20 07:00 Weight - Most Recent: 60.645 kg I&O - Last 24 Hours: Intake & Output 07/21/20 07/22/20 07/22/20 22:59 06:59 14:59 Intake Total 1648 2472 Output Total 2000 3000 Balance -352 -528 Lab Results Last 24 Hours: Laboratory Results - last 24 hr 07/22/20 07/22/20 Range/Units 05:35 05:35 WBC 8.86 (4.0-11.0) K/uL RBC 4.35 (4.30-5.90) M/uL Hgb 11.4 L (12.0-16.0) g/dL Hct 36.1 (36.0-46.0) % MCV 83.0 (80.0-98.0) fL MCH 26.2 L (27.0-32.0) pg MCHC 31.6 (31.0-37.0) g/dL RDW Std Deviation 44.1 (28.0-62.0) fl RDW Coeff of Maryam 14 (11.0-15.0) % Plt Count 140 L (150-400) K/uL MPV 9.50 (7.40-12.00) fL Neut % (Auto) 75.2 (48.0-80.0) % Lymph % (Auto) 14.8 L (16.0-40.0) % [place] % (Auto) 8.8 (0.0-15.0) % Eos % (Auto) 1.1 (0.0-7.0) % Baso % (Auto) 0.1 (0.0-1.5) % Neut # (Auto) 6.7 H (1.4-5.7) K/uL Lymph # (Auto) 1.3 (0.6-2.4) K/uL [place] # (Auto) 0.8 (0.0-0.8) K/uL Eos # (Auto) 0.1 (0.0-0.7) K/uL Baso # (Auto) 0.0 (0.0-0.1) K/uL Nucleated RBC % 0.0 /100WBC Nucleated RBCs # 0 K/uL Sodium 141 (136-145) mmol/L Potassium 3.0 L (3.5-5.1) mmol/L Chloride 105 (98-107) mmol/L Carbon Dioxide 25.8 (21.0-32.0) mmol/L BUN 3 L (7.0-18.0) mg/dL Creatinine 0.7 (0.6-1.0) mg/dL Est Cr Clr Drug Dosing 107.01 mL/min Estimated GFR (MDRD) > 60.0 ml/min Glucose 88 (74-106) mg/dL Calcium 7.7 L (8.5-10.1) mg/dL Total Bilirubin 1.0 (0.2-1.0) mg/dL AST 20 (15-37) IU/L ALT 42 (14-63) IU/L Alkaline Phosphatase 62 (46-116) U/L Total Protein 5.3 L (6.4-8.2) g/dL Albumin 2.6 L (3.4-5.0) g/dL Globulin 2.7 (2.6-4.0) g/dL Albumin/Globulin Ratio 1.0 (0.9-1.6) Med Orders - Current: Current Medications Acetaminophen (Tylenol Extra Strength) 500 mg PO Q6H PRN PRN Reason: Pain Heparin Sodium (Porcine) (Heparin Sodium) 5,000 units SUBCUT Q12H KASSANDRA Last Admin: 07/22/20 05:24 Dose: 5,000 units Documented by: Hydromorphone HCl (Dilaudid) 0.5 mg IVPUSH Q2H PRN PRN Reason: Pain Potassium Chloride/Sodium Chloride (Normal Saline With 40 Meq Kcl) 1,000 mls @ 200 mls/hr IV ASDIRECTED [facility] Ibuprofen (Motrin) 400 mg PO Q6H PRN PRN Reason: Pain (mild 1-3) Last Admin: 07/21/20 18:24 Dose: 400 mg Documented by: Melatonin (Melatonin) 3 mg PO BEDTIME PRN PRN Reason: Insomnia Omeprazole (Omeprazole) 20 mg PO ACBREAKFAST KASSANDRA Last Admin: 07/22/20 06:58 Dose: 20 mg Documented by: Ondansetron HCl (Zofran) 4 mg IVPUSH Q4H PRN PRN Reason: Nausea/Vomiting Last Admin: 07/21/20 05:00 Dose: 4 mg Documented by: Promethazine HCl (Phenergan) 12.5 mg IM Q6H PRN PRN Reason: Nausea/Vomiting Sodium Chloride (Saline Flush) 10 ml FLUSH ASDIRECTED PRN PRN Reason: Keep Vein Open Last Admin: 07/20/20 14:52 Dose: 10 ml Documented by: Sodium Chloride (Saline Flush) 2.5 ml FLUSH ASDIRECTED PRN PRN Reason: Keep Vein Open Last Admin: 07/20/20 14:51 Dose: 2.5 ml Documented by: Discontinued Medications Hydromorphone HCl (Dilaudid) 1 mg IVPUSH ONETIME ONE Stop: 07/20/20 14:46 Last Admin: 07/20/20 14:50 Dose: 1 mg Documented by: Hydromorphone HCl (Dilaudid) 1 mg IVPUSH ONETIME ONE Stop: 07/20/20 15:12 Last Admin: 07/20/20 15:15 Dose: 1 mg Documented by: Hydromorphone HCl (Dilaudid) 1 mg IVPUSH ONETIME ONE Stop: 07/20/20 17:14 Last Admin: 07/20/20 17:20 Dose: 1 mg Documented by: Hydromorphone HCl (Dilaudid) 0.5 mg IVPUSH Q2H PRN PRN Reason: Pain Hydromorphone HCl (Dilaudid) 0.5 mg IVPUSH Q1H PRN PRN Reason: Pain Last Admin: 07/22/20 08:04 Dose: 0.5 mg Documented by: Sodium Chloride (Normal Saline) 1,000 mls @ 999 mls/hr IV .Bolus ONE Stop: 07/20/20 14:17 Last Admin: 07/20/20 13:34 Dose: 999 mls/hr Documented by: Sodium Chloride (Normal Saline) 1,000 mls @ 999 mls/hr IV .Bolus ONE Stop: 07/20/20 17:13 Last Admin: 07/20/20 17:02 Dose: 999 mls/hr Documented by: Sodium Chloride (Normal Saline) 1,000 mls @ 200 mls/hr IV ASDIRECTED KASSANDRA Last Admin: 07/22/20 06:59 Dose: 200 mls/hr Documented by: Sodium Chloride (Normal Saline) 1,000 mls @ 999 mls/hr IV STAT ONE Stop: 07/20/20 20:06 Last Admin: 07/20/20 19:27 Dose: 999 mls/hr Documented by: Sodium Chloride (Normal Saline) 1,000 mls @ 999 mls/hr IV STAT ONE Stop: 07/20/20 20:21 Last Admin: 07/20/20 20:44 Dose: 999 mls/hr Documented by: Iopamidol (Isovue Multipack-370 (76%)) 72 ml IVPUSH ONETIME ONE Stop: 07/20/20 14:43 Last Admin: 07/20/20 14:42 Dose: 72 ml Documented by: Lorazepam (Ativan) 1 mg IVPUSH ONETIME ONE Stop: 07/20/20 18:53 Last Admin: 07/20/20 19:24 Dose: 1 mg Documented by: Morphine Sulfate (Morphine) 4 mg IVPUSH ONETIME ONE Stop: 07/20/20 13:18 Last Admin: 07/20/20 13:37 Dose: 4 mg Documented by: Ondansetron HCl (Zofran) 4 mg IVPUSH ONETIME ONE Stop: 07/20/20 13:18 Last Admin: 07/20/20 13:35 Dose: 4 mg Documented by: Ondansetron HCl (Zofran) 8 mg IVPUSH ONETIME ONE Stop: 07/20/20 17:01 Last Admin: 07/20/20 17:09 Dose: Not Given Documented by: Ondansetron HCl (Zofran) 4 mg IVPUSH ONETIME ONE Stop: 07/20/20 17:06 Last Admin: 07/20/20 17:07 Dose: 4 mg Documented by: Ondansetron HCl (Zofran) 4 mg IVPUSH Q6H PRN PRN Reason: Nausea/Vomiting Potassium Chloride (Klor-Con M20) 40 meq PO ONETIME ONE Stop: 07/22/20 08:21 Promethazine HCl (Phenergan) 12.5 mg IM ONETIME ONE Stop: 07/20/20 17:52 Last Admin: 07/20/20 18:06 Dose: 12.5 mg Documented by: Promethazine HCl (Phenergan) 25 mg PO Q6H PRN PRN Reason: Nausea/Vomiting - Exam Quality Assessment: No: Supplemental Oxygen General: Alert, Oriented, Cooperative, No Acute Distress HEENT: EOMI, Mucous Membr. Moist/Appling Lungs: Clear to Auscultation Cardiovascular: Regular Rate, Regular Rhythm GI/Abdominal Exam: Soft, Other (abdominal tenderness noted ; LUQ and epigastrum ; no rebound tenderness ) Back Exam: Normal Inspection Skin: Warm, Dry Neurological: No New Focal Deficit Psy/Mental Status: Alert, Normal Affect Sepsis Event Note - Evaluation Sepsis Screening Result: No Definite Risk - Focused Exam Vital Signs: Vital Signs Temp Pulse Resp BP Pulse Ox 07/22/20 07:00 98.8 F 96 14 107/67 96 07/22/20 03:53 98 F 89 16 103/59 L 96 07/21/20 23:51 97.9 F 90 15 111/64 95 - Problem List & Annotations (1) Pancreatitis SNOMED Code(s): 25145051 Code(s): K85.90 - ACUTE PANCREATITIS WITHOUT NECROSIS OR INFECTION, UNSP Status: Acute Current Visit: Yes Qualifiers: Chronicity: acute Pancreatitis type: unspecified pancreatitis type Acute pancreatitis complication: unspecified Qualified Code(s): K85.90 - Acute panc reatitis without necrosis or infection, unspecified - Problem List Review Problem List Initiated/Reviewed/Updated: Yes - My Orders Last 24 Hours: My Active Orders 07/21/20 07:30 Omeprazole 20 mg PO ACBREAKFAST 07/22/20 08:26 HYDROmorphone [Dilaudid] 0.5 mg IVPUSH Q2H PRN 07/22/20 08:27 Acetaminophen [Tylenol Extra Strength] 500 mg PO Q6H PRN 07/22/20 08:30 Sodium Chloride 0.9% with KCl [Normal Saline with 40 mEq KCl] 1,000 ml IV ASDIRECTED 07/23/20 05:11 CBC WITH AUTO DIFF [HEME] AM CBC WITH AUTO DIFF [HEME] AM COMPREHENSIVE METABOLIC PN,CMP [CHEM] AM COMPREHENSIVE METABOLIC PN,CMP [CHEM] AM 07/24/20 05:11 CBC WITH AUTO DIFF [HEME] AM COMPREHENSIVE METABOLIC PN,CMP [CHEM] AM 07/25/20 05:11 CBC WITH AUTO DIFF [HEME] AM COMPREHENSIVE METABOLIC PN,CMP [CHEM] AM - Plan Plan:: Assessment: 1. Acute pancreatitis of unknown etiology 2. Leukocytosis:resolved 3. Hypertriglyceridemia. 4. Covid negative. Plan Admit to observation. Full code. I's and O's per routine. vitals per routine. 1. Acute pancreatitis: continue with IV fluids, bowel rest and pain control. Will order an MRCP in light of concerns for pancreatitis of unknown origin (elevated alkaline phosphatase) ; Preliminary [employer] panel ordered dsDNA, MATTHIAS, and IgG (AIP-SC criteria lab) Fluids: NS 200 cc/hr (received 2 Liter NS bolus in ED) Pain control: Dilaudid 0.5 q 2hours Ibuprofen +tylenol PRN Leukocytosis: resolved Elevated triglycerides/Borderline high: elevated but does not seem to be the current etiology for her pancreatitis ; may consider fibric acid derivative if necessary but unlikely. No other easily identifiable causes except "fatty meal"/ (e.g: no recent procedures, trauamas, ingestion of ilicit drugs per patient , infections No other significant PMH per patient. <Barbara Ribeiro - Last Filed: 07/22/20 21:28> - Patient Data Vitals - Most Recent: Last Vital Signs Temp 36.9 C 07/22/20 19:33 Pulse 95 07/22/20 19:33 Resp 18 07/22/20 19:33 BP 116/59 L 07/22/20 19:33 Pulse Ox 96 07/22/20 19:33 I&O - Last 24 Hours: Intake & Output 07/22/20 07/22/20 07/22/20 06:59 14:59 22:59 Intake Total 2472 75 1850 Output Total 3000 1000 2000 Balance -503 -925 -150 Lab Results Last 24 Hours: Laboratory Results - last 24 hr 07/22/20 07/22/20 07/22/20 Range/Units 05:35 05:35 05:35 WBC 8.86 (4.0-11.0) K/uL RBC 4.35 (4.30-5.90) M/uL Hgb 11.4 L (12.0-16.0) g/dL Hct 36.1 (36.0-46.0) % MCV 83.0 (80.0-98.0) fL MCH 26.2 L (27.0-32.0) pg MCHC 31.6 (31.0-37.0) g/dL RDW Std Deviation 44.1 (28.0-62.0) fl RDW Coeff of Maryam 14 (11.0-15.0) % Plt Count 140 L (150-400) K/uL MPV 9.50 (7.40-12.00) fL Neut % (Auto) 75.2 (48.0-80.0) % Lymph % (Auto) 14.8 L (16.0-40.0) % [place] % (Auto) 8.8 (0.0-15.0) % Eos % (Auto) 1.1 (0.0-7.0) % Baso % (Auto) 0.1 (0.0-1.5) % Neut # (Auto) 6.7 H (1.4-5.7) K/uL Lymph # (Auto) 1.3 (0.6-2.4) K/uL [place] # (Auto) 0.8 (0.0-0.8) K/uL Eos # (Auto) 0.1 (0.0-0.7) K/uL Baso # (Auto) 0.0 (0.0-0.1) K/uL Nucleated RBC % 0.0 /100WBC Nucleated RBCs # 0 K/uL Sodium 141 (136-145) mmol/L Potassium 3.0 L (3.5-5.1) mmol/L Chloride 105 (98-107) mmol/L Carbon Dioxide 25.8 (21.0-32.0) mmol/L BUN 3 L (7.0-18.0) mg/dL Creatinine 0.7 (0.6-1.0) mg/dL Est Cr Clr Drug Dosing 107.01 mL/min Estimated GFR (MDRD) > 60.0 ml/min Glucose 88 (74-106) mg/dL Calcium 7.7 L (8.5-10.1) mg/dL Total Bilirubin 1.0 (0.2-1.0) mg/dL AST 20 (15-37) IU/L ALT 42 (14-63) IU/L Alkaline Phosphatase 62 (46-116) U/L Total Protein 5.3 L (6.4-8.2) g/dL Albumin 2.6 L (3.4-5.0) g/dL Globulin 2.7 (2.6-4.0) g/dL Albumin/Globulin Ratio 1.0 (0.9-1.6) Amylase (25-115) U/L Lipase 4934 H (73-393) U/L 07/22/20 Range/Units 05:35 WBC (4.0-11.0) K/uL RBC (4.30-5.90) M/uL Hgb (12.0-16.0) g/dL Hct (36.0-46.0) % MCV (80.0-98.0) fL MCH (27.0-32.0) pg MCHC (31.0-37.0) g/dL RDW Std Deviation (28.0-62.0) fl RDW Coeff of Maryam (11.0-15.0) % Plt Count (150-400) K/uL MPV (7.40-12.00) fL Neut % (Auto) (48.0-80.0) % Lymph % (Auto) (16.0-40.0) % [place] % (Auto) (0.0-15.0) % Eos % (Auto) (0.0-7.0) % Baso % (Auto) (0.0-1.5) % Neut # (Auto) (1.4-5.7) K/uL Lymph # (Auto) (0.6-2.4) K/uL [place] # (Auto) (0.0-0.8) K/uL Eos # (Auto) (0.0-0.7) K/uL Baso # (Auto) (0.0-0.1) K/uL Nucleated RBC % /100WBC Nucleated RBCs # K/uL Sodium (136-145) mmol/L Potassium (3.5-5.1) mmol/L Chloride (98-107) mmol/L Carbon Dioxide (21.0-32.0) mmol/L BUN (7.0-18.0) mg/dL Creatinine (0.6-1.0) mg/dL Est Cr Clr Drug Dosing mL/min Estimated GFR (MDRD) ml/min Glucose (74-106) mg/dL Calcium (8.5-10.1) mg/dL Total Bilirubin (0.2-1.0) mg/dL AST (15-37) IU/L ALT (14-63) IU/L Alkaline Phosphatase (46-116) U/L Total Protein (6.4-8.2) g/dL Albumin (3.4-5.0) g/dL Globulin (2.6-4.0) g/dL Albumin/Globulin Ratio (0.9-1.6) Amylase 1582 H (25-115) U/L Lipase (73-393) U/L Med Orders - Current: Current Medications Acetaminophen (Tylenol Extra Strength) 500 mg PO Q6H PRN PRN Reason: Pain Last Admin: 07/22/20 21:23 Dose: 500 mg Documented by: Heparin Sodium (Porcine) (Heparin Sodium) 5,000 units SUBCUT Q12H KASSANDRA Last Admin: 07/22/20 17:04 Dose: 5,000 units Documented by: Hydromorphone HCl (Dilaudid) 0.5 mg IVPUSH Q2H PRN PRN Reason: Pain Last Admin: 07/22/20 19:31 Dose: 0.5 mg Documented by: Sodium Chloride (Normal Saline) 1,000 mls @ 150 mls/hr IV CONTINUOUS KASSANDRA Last Admin: 07/22/20 18:25 Dose: 150 mls/hr Documented by: Ibuprofen (Motrin) 400 mg PO Q6H PRN PRN Reason: Pain (mild 1-3) Last Admin: 07/21/20 18:24 Dose: 400 mg Documented by: Melatonin (Melatonin) 3 mg PO BEDTIME PRN PRN Reason: Insomnia Omeprazole (Omeprazole) 20 mg PO ACBREAKFAST KASSANDRA Last Admin: 07/22/20 06:58 Dose: 20 mg Documented by: Ondansetron HCl (Zofran) 4 mg IVPUSH Q4H PRN PRN Reason: Nausea/Vomiting Last Admin: 07/21/20 05:00 Dose: 4 mg Documented by: Promethazine HCl (Phenergan) 12.5 mg IM Q6H PRN PRN Reason: Nausea/Vomiting Sodium Chloride (Saline Flush) 10 ml FLUSH ASDIRECTED PRN PRN Reason: Keep Vein Open Last Admin: 07/20/20 14:52 Dose: 10 ml Documented by: Sodium Chloride (Saline Flush) 2.5 ml FLUSH ASDIRECTED PRN PRN Reason: Keep Vein Open Last Admin: 07/20/20 14:51 Dose: 2.5 ml Documented by: Discontinued Medications Hydromorphone HCl (Dilaudid) 1 mg IVPUSH ONETIME ONE Stop: 07/20/20 14:46 Last Admin: 07/20/20 14:50 Dose: 1 mg Documented by: Hydromorphone HCl (Dilaudid) 1 mg IVPUSH ONETIME ONE Stop: 07/20/20 15:12 Last Admin: 07/20/20 15:15 Dose: 1 mg Documented by: Hydromorphone HCl (Dilaudid) 1 mg IVPUSH ONETIME ONE Stop: 07/20/20 17:14 Last Admin: 07/20/20 17:20 Dose: 1 mg Documented by: Hydromorphone HCl (Dilaudid) 0.5 mg IVPUSH Q2H PRN PRN Reason: Pain Hydromorphone HCl (Dilaudid) 0.5 mg IVPUSH Q1H PRN PRN Reason: Pain Last Admin: 07/22/20 08:04 Dose: 0.5 mg Documented by: Sodium Chloride (Normal Saline) 1,000 mls @ 999 mls/hr IV .Bolus ONE Stop: 07/20/20 14:17 Last Admin: 07/20/20 13:34 Dose: 999 mls/hr Documented by: Sodium Chloride (Normal Saline) 1,000 mls @ 999 mls/hr IV .Bolus ONE Stop: 07/20/20 17:13 Last Admin: 07/20/20 17:02 Dose: 999 mls/hr Documented by: Sodium Chloride (Normal Saline) 1,000 mls @ 200 mls/hr IV ASDIRECTED [facility] Last Admin: 07/22/20 06:59 Dose: 200 mls/hr Documented by: Sodium Chloride (Normal Saline) 1,000 mls @ 999 mls/hr IV STAT ONE Stop: 07/20/20 20:06 Last Admin: 07/20/20 19:27 Dose: 999 mls/hr Documented by: Sodium Chloride (Normal Saline) 1,000 mls @ 999 mls/hr IV STAT ONE Stop: 07/20/20 20:21 Last Admin: 07/20/20 20:44 Dose: 999 mls/hr Documented by: Potassium Chloride/Sodium Chloride (Normal Saline With 40 Meq Kcl) 1,000 mls @ 150 mls/hr IV ASDIRECTED [facility] Last Admin: 07/22/20 09:23 Dose: 200 mls/hr Documented by: Iopamidol (Isovue Multipack-370 (76%)) 72 ml IVPUSH ONETIME ONE Stop: 07/20/20 14:43 Last Admin: 07/20/20 14:42 Dose: 72 ml Documented by: Lorazepam (Ativan) 1 mg IVPUSH ONETIME ONE Stop: 07/20/20 18:53 Last Admin: 07/20/20 19:24 Dose: 1 mg Documented by: Morphine Sulfate (Morphine) 4 mg IVPUSH ONETIME ONE Stop: 07/20/20 13:18 Last Admin: 07/20/20 13:37 Dose: 4 mg Documented by: Ondansetron HCl (Zofran) 4 mg IVPUSH ONETIME ONE Stop: 07/20/20 13:18 Last Admin: 07/20/20 13:35 Dose: 4 mg Documented by: Ondansetron HCl (Zofran) 8 mg IVPUSH ONETIME ONE Stop: 07/20/20 17:01 Last Admin: 07/20/20 17:09 Dose: Not Given Documented by: Ondansetron HCl (Zofran) 4 mg IVPUSH ONETIME ONE Stop: 07/20/20 17:06 Last Admin: 07/20/20 17:07 Dose: 4 mg Documented by: Ondansetron HCl (Zofran) 4 mg IVPUSH Q6H PRN PRN Reason: Nausea/Vomiting Potassium Chloride (Klor-Con M20) 40 meq PO ONETIME ONE Stop: 07/22/20 08:21 Promethazine HCl (Phenergan) 12.5 mg IM ONETIME ONE Stop: 07/20/20 17:52 Last Admin: 07/20/20 18:06 Dose: 12.5 mg Documented by: Promethazine HCl (Phenergan) 25 mg PO Q6H PRN PRN Reason: Nausea/Vomiting Sepsis Event Note - Focused Exam Vital Signs: Vital Signs Temp Pulse Resp BP Pulse Ox 07/22/20 19:33 36.9 C 95 18 116/59 L 96 07/22/20 15:00 37.3 C 109 H 16 119/65 95 07/22/20 11:00 36.8 C 97 21 H 117/67 96 - Problem List & Annotations (1) Pancreatitis SNOMED Code(s): 38082619 Code(s): K85.90 - ACUTE PANCREATITIS WITHOUT NECROSIS OR INFECTION, UNSP Status: Acute Current Visit: Yes Qualifiers: Chronicity: acute Pancreatitis type: unspecified pancreatitis type Acute pancreatitis complication: unspecified Qualified Code(s): K85.90 - Acute pancreatitis without necrosis or infection, unspecified - My Orders Last 24 Hours: My Active Orders 07/22/20 Breakfast NPO [Nothing Per Oral Diet] [DIET] - Plan Plan:: Patient seen and examined by me independently, discussed management plan with the resident and agree with the note above.
--- NOTE | 2020-07-22 14:06 | MR ---
INDICATION: Pancreatitis. TECHNIQUE: An MRCP, including 2D, 3D and maximum intensity projection imaging, was performed. COMPARISON: Right upper quadrant ultrasound and abdomen/pelvis CT of 07/20/2020. FINDINGS: Acute pancreatitis is again demonstrated with considerable fluid in the anterior pararenal space as well as some pancreatic ascites. The common bile duct is smoothly marginated and measures up to 3 mm in diameter. No filling defect is evident. The intrahepatic ducts are suboptimally visualized but are not enlarged. The gallbladder is negative. The pancreatic duct is normal in caliber as seen on the axial T2-weighted images. The pancreatic duct is poorly visualized on the MIP images. The liver is normal in size, shape and signal. The spleen, adrenal glands and kidneys are within normal limits. No bowel abnormality or lymphadenopathy is demonstrated. Small pleural effusions are noted bilaterally. The heart size is normal. IMPRESSION: 1. Negative for choledocholithiasis. 2. Acute pancreatitis with considerable fluid in the anterior pararenal space and some pancreatic ascites. 3. Small pleural effusions bilaterally. Dictated by Jose Atkins MD @ Jul 22 2020 1:55PM Signed by Dr. Jose Atkins @ Jul 22 2020 2:05PM
[2020-07-23] MEDS: Sodium Chloride 0.9% 1,000 ML IV SCH ×4 (02:09→22:41)
[2020-07-23] MEDS: HYDROmorphone 1 MG/ML Syringe IVPUSH PRN ×3 (02:35→07:47)
[2020-07-23] MEDS: Heparin Sodium 5,000 Units/ML Vial SUBCUT SCH ×2 (04:32→17:05)
[2020-07-23 06:18] LABS: BLOOD UREA NITROGEN,BUN 4 mg/dL (7.0-18.0); CARBON DIOXIDE,CO2 21.3 mmol/L (21.0-32.0); CHLORIDE,CL 103 mmol/L (98-107); GLUCOSE RANDOM 76 mg/dL (74-106); LIPASE 842 U/L (73-393); POTASSIUM,K 3.2 mmol/L (3.5-5.1); SODIUM,NA 138 mmol/L (136-145)
[2020-07-23] MEDS: Omeprazole 20 MG Cap.CR PO SCH (06:36)
[2020-07-23] MEDS ORDERED: Potassium Chloride 20 MEQ Tab.ER PO ONE (07:57)
--- NOTE | 2020-07-23 08:26 | PCM.PN ---
<Niki Mcarthur - Last Filed: 07/23/20 10:39> - General Info Date of Service: 07/23/20 Subjective Update: Bedside: co pain has not changed and returns once dilaudid wears off; feels hungry "but always feels hungry". Mentions Nausea and vomiting have subsided. Walked a short distance yesterday but endorses this made the pain worse - Review of Systems General: Denies: Fever HEENT: Reports: No Symptoms Pulmonary: Reports: No Symptoms Cardiovascular: Reports: No Symptoms Gastrointestinal: Reports: Abdominal Pain. Denies: Nausea, Vomiting Genitourinary: Reports: No Symptoms Musculoskeletal: Reports: No Symptoms Skin: Reports: No Symptoms Neurological: Denies: Headache - Patient Data Vitals - Most Recent: Last Vital Signs Temp 98.3 F 07/23/20 04:36 Pulse 97 07/23/20 04:36 Resp 18 07/23/20 04:36 BP 123/70 07/23/20 04:36 Pulse Ox 95 07/23/20 04:36 Weight - Most Recent: 64.909 kg I&O - Last 24 Hours: Intake & Output 07/22/20 07/23/20 07/23/20 22:59 06:59 14:59 Intake Total 1850 1682 Output Total 2000 4000 Balance -150 -2318 Lab Results Last 24 Hours: Laboratory Results - last 24 hr 07/22/20 07/22/20 07/23/20 Range/Units 05:35 05:35 05:23 WBC 10.46 (4.0-11.0) K/uL RBC 4.24 L (4.30-5.90) M/uL Hgb 11.1 L (12.0-16.0) g/dL Hct 34.9 L (36.0-46.0) % MCV 82.3 (80.0-98.0) fL MCH 26.2 L (27.0-32.0) pg MCHC 31.8 (31.0-37.0) g/dL RDW Std Deviation 43.6 (28.0-62.0) fl RDW Coeff of Maryam 15 (11.0-15.0) % Plt Count 164 (150-400) K/uL MPV 9.20 (7.40-12.00) fL Neut % (Auto) 76.3 (48.0-80.0) % Lymph % (Auto) 12.2 L (16.0-40.0) % [place] % (Auto) 9.9 (0.0-15.0) % Eos % (Auto) 1.5 (0.0-7.0) % Baso % (Auto) 0.1 (0.0-1.5) % Neut # (Auto) 8.0 H (1.4-5.7) K/uL Lymph # (Auto) 1.3 (0.6-2.4) K/uL [place] # (Auto) 1.0 H (0.0-0.8) K/uL Eos # (Auto) 0.2 (0.0-0.7) K/uL Baso # (Auto) 0.0 (0.0-0.1) K/uL Nucleated RBC % 0.0 /100WBC Nucleated RBCs # 0 K/uL Sodium (136-145) mmol/L Potassium (3.5-5.1) mmol/L Chloride (98-107) mmol/L Carbon Dioxide (21.0-32.0) mmol/L BUN (7.0-18.0) mg/dL Creatinine (0.6-1.0) mg/dL Est Cr Clr Drug Dosing mL/min Estimated GFR (MDRD) ml/min Glucose (74-106) mg/dL Calcium (8.5-10.1) mg/dL Total Bilirubin (0.2-1.0) mg/dL AST (15-37) IU/L ALT (14-63) IU/L Alkaline Phosphatase (46-116) U/L Total Protein (6.4-8.2) g/dL Albumin (3.4-5.0) g/dL Globulin (2.6-4.0) g/dL Albumin/Globulin Ratio (0.9-1.6) Amylase 1582 H (25-115) U/L Lipase 4934 H (73-393) U/L 07/23/20 Range/Units 05:23 WBC (4.0-11.0) K/uL RBC (4.30-5.90) M/uL Hgb (12.0-16.0) g/dL Hct (36.0-46.0) % MCV (80.0-98.0) fL MCH (27.0-32.0) pg MCHC (31.0-37.0) g/dL RDW Std Deviation (28.0-62.0) fl RDW Coeff of Maryam (11.0-15.0) % Plt Count (150-400) K/uL MPV (7.40-12.00) fL Neut % (Auto) (48.0-80.0) % Lymph % (Auto) (16.0-40.0) % [place] % (Auto) (0.0-15.0) % Eos % (Auto) (0.0-7.0) % Baso % (Auto) (0.0-1.5) % Neut # (Auto) (1.4-5.7) K/uL Lymph # (Auto) (0.6-2.4) K/uL [place] # (Auto) (0.0-0.8) K/uL Eos # (Auto) (0.0-0.7) K/uL Baso # (Auto) (0.0-0.1) K/uL Nucleated RBC % /100WBC Nucleated RBCs # K/uL Sodium 138 (136-145) mmol/L Potassium 3.2 L (3.5-5.1) mmol/L Chloride 103 (98-107) mmol/L Carbon Dioxide 21.3 (21.0-32.0) mmol/L BUN 4 L (7.0-18.0) mg/dL Creatinine 0.6 (0.6-1.0) mg/dL Est Cr Clr Drug Dosing 124.85 mL/min Estimated GFR (MDRD) > 60.0 ml/min Glucose 76 (74-106) mg/dL Calcium 8.3 L (8.5-10.1) mg/dL Total Bilirubin 0.9 (0.2-1.0) mg/dL AST 16 (15-37) IU/L ALT 33 (14-63) IU/L Alkaline Phosphatase 70 (46-116) U/L Total Protein 6.1 L (6.4-8.2) g/dL Albumin 2.6 L (3.4-5.0) g/dL Globulin 3.5 (2.6-4.0) g/dL Albumin/Globulin Ratio 0.7 L (0.9-1.6) Amylase (25-115) U/L Lipase 842 H (73-393) U/L Med Orders - Current: Current Medications Acetaminophen (Tylenol Extra Strength) 500 mg PO Q6H PRN PRN Reason: Pain Last Admin: 07/22/20 21:23 Dose: 500 mg Documented by: Heparin Sodium (Porcine) (Heparin Sodium) 5,000 units SUBCUT Q12H KASSANDRA Last Admin: 07/23/20 04:32 Dose: 5,000 units Documented by: Hydromorphone HCl (Dilaudid) 0.5 mg IVPUSH Q2H PRN PRN Reason: Pain Last Admin: 07/23/20 07:47 Dose: 0.5 mg Documented by: Sodium Chloride (Normal Saline) 1,000 mls @ 150 mls/hr IV CONTINUOUS KASSANDRA Last Admin: 07/23/20 02:09 Dose: 150 mls/hr Documented by: Ibuprofen (Motrin) 400 mg PO Q6H PRN PRN Reason: Pain (mild 1-3) Last Admin: 07/21/20 18:24 Dose: 400 mg Documented by: Melatonin (Melatonin) 3 mg PO BEDTIME PRN PRN Reason: Insomnia Omeprazole (Omeprazole) 20 mg PO ACBREAKFAST KASSANDRA Last Admin: 07/23/20 06:36 Dose: 20 mg Documented by: Ondansetron HCl (Zofran) 4 mg IVPUSH Q4H PRN PRN Reason: Nausea/Vomiting Last Admin: 07/21/20 05:00 Dose: 4 mg Documented by: Promethazine HCl (Phenergan) 12.5 mg IM Q6H PRN PRN Reason: Nausea/Vomiting Sodium Chloride (Saline Flush) 10 ml FLUSH ASDIRECTED PRN PRN Reason: Keep Vein Open Last Admin: 07/20/20 14:52 Dose: 10 ml Documented by: Sodium Chloride (Saline Flush) 2.5 ml FLUSH ASDIRECTED PRN PRN Reason: Keep Vein Open Last Admin: 07/20/20 14:51 Dose: 2.5 ml Documented by: Discontinued Medications Hydromorphone HCl (Dilaudid) 1 mg IVPUSH ONETIME ONE Stop: 07/20/20 14:46 Last Admin: 07/20/20 14:50 Dose: 1 mg Documented by: Hydromorphone HCl (Dilaudid) 1 mg IVPUSH ONETIME ONE Stop: 07/20/20 15:12 Last Admin: 07/20/20 15:15 Dose: 1 mg Documented by: Hydromorphone HCl (Dilaudid) 1 mg IVPUSH ONETIME ONE Stop: 07/20/20 17:14 Last Admin: 07/20/20 17:20 Dose: 1 mg Documented by: Hydromorphone HCl (Dilaudid) 0.5 mg IVPUSH Q2H PRN PRN Reason: Pain Hydromorphone HCl (Dilaudid) 0.5 mg IVPUSH Q1H PRN PRN Reason: Pain Last Admin: 07/22/20 08:04 Dose: 0.5 mg Documented by: Sodium Chloride (Normal Saline) 1,000 mls @ 999 mls/hr IV .Bolus ONE Stop: 07/20/20 14:17 Last Admin: 07/20/20 13:34 Dose: 999 mls/hr Documented by: Sodium Chloride (Normal Saline) 1,000 mls @ 999 mls/hr IV .Bolus ONE Stop: 07/20/20 17:13 Last Admin: 07/20/20 17:02 Dose: 999 mls/hr Documented by: Sodium Chloride (Normal Saline) 1,000 mls @ 200 mls/hr IV ASDIRECTED [facility] Last Admin: 07/22/20 06:59 Dose: 200 mls/hr Documented by: Sodium Chloride (Normal Saline) 1,000 mls @ 999 mls/hr IV STAT ONE Stop: 07/20/20 20:06 Last Admin: 07/20/20 19:27 Dose: 999 mls/hr Documented by: Sodium Chloride (Normal Saline) 1,000 mls @ 999 mls/hr IV STAT ONE Stop: 07/20/20 20:21 Last Admin: 07/20/20 20:44 Dose: 999 mls/hr Documented by: Potassium Chloride/Sodium Chloride (Normal Saline With 40 Meq Kcl) 1,000 mls @ 150 mls/hr IV ASDIRECTED [facility] Last Admin: 07/22/20 09:23 Dose: 200 mls/hr Documented by: Iopamidol (Isovue Multipack-370 (76%)) 72 ml IVPUSH ONETIME ONE Stop: 07/20/20 14:43 Last Admin: 07/20/20 14:42 Dose: 72 ml Documented by: Lorazepam (Ativan) 1 mg IVPUSH ONETIME ONE Stop: 07/20/20 18:53 Last Admin: 07/20/20 19:24 Dose: 1 mg Documented by: Morphine Sulfate (Morphine) 4 mg IVPUSH ONETIME ONE Stop: 07/20/20 13:18 Last Admin: 07/20/20 13:37 Dose: 4 mg Documented by: Ondansetron HCl (Zofran) 4 mg IVPUSH ONETIME ONE Stop: 07/20/20 13:18 Last Admin: 07/20/20 13:35 Dose: 4 mg Documented by: Ondansetron HCl (Zofran) 8 mg IVPUSH ONETIME ONE Stop: 07/20/20 17:01 Last Admin: 07/20/20 17:09 Dose: Not Given Documented by: Ondansetron HCl (Zofran) 4 mg IVPUSH ONETIME ONE Stop: 07/20/20 17:06 Last Admin: 07/20/20 17:07 Dose: 4 mg Documented by: Ondansetron HCl (Zofran) 4 mg IVPUSH Q6H PRN PRN Reason: Nausea/Vomiting Potassium Chloride (Klor-Con M20) 40 meq PO ONETIME ONE Stop: 07/22/20 08:21 Potassium Chloride (Klor-Con M20) 40 meq PO ONETIME ONE Stop: 07/23/20 07:58 Promethazine HCl (Phenergan) 12.5 mg IM ONETIME ONE Stop: 07/20/20 17:52 Last Admin: 07/20/20 18:06 Dose: 12.5 mg Documented by: Promethazine HCl (Phenergan) 25 mg PO Q6H PRN PRN Reason: Nausea/Vomiting - Exam Quality Assessment: No: Supplemental Oxygen General: Alert, Oriented HEENT: EOMI Neck: Supple Lungs: Other (diminhsed BS in all lung munoz ) Cardiovascular: Regular Rate, Regular Rhythm GI/Abdominal Exam: Other (soft abdomen ; ezquisite tenderness to minimal palpation diffusely ) Extremities: Normal Inspection Neurological: No New Focal Deficit Psy/Mental Status: Alert Sepsis Event Note - Evaluation Sepsis Screening Result: No Definite Risk - Focused Exam Vital Signs: Vital Signs Temp Pulse Resp BP Pulse Ox 07/23/20 04:36 98.3 F 97 18 123/70 95 07/22/20 23:17 98.1 F 97 18 109/59 L 95 - Problem List & Annotations (1) Pancreatitis SNOMED Code(s): 30162977 Code(s): K85.90 - ACUTE PANCREATITIS WITHOUT NECROSIS OR INFECTION, UNSP Status: Acute Current Visit: Yes Qualifiers: Chronicity: acute Pancreatitis type: unspecified pancreatitis type Acute pancreatitis complication: unspecified Qualified Code(s): K85.90 - Acute pancreatitis without necrosis or infection, unspecified - Problem List Review Problem List Initiated/Reviewed/Updated: Yes - My Orders Last 24 Hours: My Active Orders 07/22/20 08:26 HYDROmorphone [Dilaudid] 0.5 mg IVPUSH Q2H PRN 07/22/20 08:27 Acetaminophen [Tylenol Extra Strength] 500 mg PO Q6H PRN 07/22/20 11:29 Abdomen wo Cont [MR] Routine 07/22/20 15:00 Daily Weight [Height and Weight] [RC] DAILY 07/22/20 15:12 Intake and Output Strict [RC] Q12H 07/22/20 17:15 Sodium Chloride 0.9% [Normal Saline] 1,000 ml IV CONTINUOUS 07/22/20 17:41 Consult to Physician [CONS] Routine 07/22/20 17:42 Notify Provider Consults [RC] ASDIRECTED 07/23/20 05:23 MATTHIAS W/REFLEX [REF] Routine ANTI-DNA (DS) AB QN [REF] Routine IGG, SUBCLASSES(1-4) [REF] Routine 07/24/20 05:11 CBC WITH AUTO DIFF [HEME] AM COMPREHENSIVE METABOLIC PN,CMP [CHEM] AM 07/25/20 05:11 CBC WITH AUTO DIFF [HEME] AM COMPREHENSIVE METABOLIC PN,CMP [CHEM] AM - Assessment Assessment:: Assessment: 1. Acute pancreatitis of unknown etiology 2. Leukocytosis:resolved 3. Hypertriglyceridemia. 4. Covid negative. 5 Hypokalemia Plan Admit to observation. Full code. I's and O's per routine. vitals per routine. 1. Acute pancreatitis: continue with IV fluids, bowel rest and pain control. MRCP: acute pancreatitis w. peripancreatic fluid and left pararenal asciitis ; concerns regarding fluid accumulation noted; Preliminary auto-immune panel ordered dsDNA, MATTHIAS, and IgG (AIP-SC criteria lab): pending (send out) Fluids: NS 150 cc/hr ; goal is 60 cc urine output Pain control: pt still having significant breakthrough pain; will initatiate aa [employer]GULAR [employer] pump w. Dilaudid for pain control with interest of more sustained analgesia add on Ibuprofen +Tylenol PRN Leukocytosis: resolved Hypokalemia: 40 PO K chloride this AM l recheck in AM Normocytic anemia: no overt signs of bleeding ; most likely secondary to dilutions effect Hypoalbuminemia: decrease in PO status + dilutional ; continue to monitor No other significant PMH per patient. <Barbara Ribeiro - Last Filed: 07/24/20 10:58> - Patient Data Vitals - Most Recent: Last Vital Signs Temp 36.7 C 07/24/20 08:09 Pulse 95 07/24/20 08:09 Resp 20 07/24/20 08:00 BP 110/60 07/24/20 08:00 Pulse Ox 95 07/24/20 08:00 I&O - Last 24 Hours: Intake & Output 07/23/20 07/24/20 07/24/20 22:59 06:59 14:59 Intake Total 60 50 Output Total 1700 2600 Balance -1640 -2550 Lab Results Last 24 Hours: Laboratory Results - last 24 hr 07/24/20 07/24/20 Range/Units 05:06 05:06 WBC 9.40 (4.0-11.0) K/uL RBC 4.11 L (4.30-5.90) M/uL Hgb 10.7 L (12.0-16.0) g/dL Hct 33.4 L (36.0-46.0) % MCV 81.3 (80.0-98.0) fL MCH 26.0 L (27.0-32.0) pg MCHC 32.0 (31.0-37.0) g/dL RDW Std Deviation 43.1 (28.0-62.0) fl RDW Coeff of Maryam 14 (11.0-15.0) % Plt Count 171 (150-400) K/uL MPV 9.20 (7.40-12.00) fL Neut % (Auto) 76.4 (48.0-80.0) % Lymph % (Auto) 11.4 L (16.0-40.0) % [place] % (Auto) 10.3 (0.0-15.0) % Eos % (Auto) 1.7 (0.0-7.0) % Baso % (Auto) 0.2 (0.0-1.5) % Neut # (Auto) 7.2 H (1.4-5.7) K/uL Lymph # (Auto) 1.1 (0.6-2.4) K/uL [place] # (Auto) 1.0 H (0.0-0.8) K/uL Eos # (Auto) 0.2 (0.0-0.7) K/uL Baso # (Auto) 0.0 (0.0-0.1) K/uL Nucleated RBC % 0.0 /100WBC Nucleated RBCs # 0 K/uL Sodium 137 (136-145) mmol/L Potassium 3.4 L (3.5-5.1) mmol/L Chloride 102 (98-107) mmol/L Carbon Dioxide 20.0 L (21.0-32.0) mmol/L BUN 4 L (7.0-18.0) mg/dL Creatinine 0.5 L (0.6-1.0) mg/dL Est Cr Clr Drug Dosing 149.82 mL/min Estimated GFR (MDRD) > 60.0 ml/min Glucose 75 (74-106) mg/dL Calcium 8.3 L (8.5-10.1) mg/dL Total Bilirubin 0.7 (0.2-1.0) mg/dL AST 11 L (15-37) IU/L ALT 29 (14-63) IU/L Alkaline Phosphatase 71 (46-116) U/L Total Protein 6.1 L (6.4-8.2) g/dL Albumin 2.5 L (3.4-5.0) g/dL Globulin 3.6 (2.6-4.0) g/dL Albumin/Globulin Ratio 0.7 L (0.9-1.6) Med Orders - Current: Current Medications Acetaminophen (Tylenol Extra Strength) 500 mg PO Q6H PRN PRN Reason: Pain Last Admin: 07/22/20 21:23 Dose: 500 mg Documented by: Diphenhydramine HCl (Benadryl) 25 mg IVPUSH Q6H PRN PRN Reason: Itching Heparin Sodium (Porcine) (Heparin Sodium) 5,000 units SUBCUT Q12H KASSANDRA Last Admin: 07/24/20 05:44 Dose: 5,000 units Documented by: Sodium Chloride (Normal Saline) 1,000 mls @ 150 mls/hr IV CONTINUOUS KASSANDRA Last Admin: 07/24/20 05:43 Dose: 150 mls/hr Documented by: Hydromorphone HCl 10 mg/ (Sodium Chloride) 50 mls @ 0.5 mls/hr IV ASDIRECTED KASSANDRA; Protocol Last Admin: 07/23/20 11:39 Dose: 0.1 mg/hr, 0.5 mls/hr Documented by: Ibuprofen (Motrin) 400 mg PO Q6H PRN PRN Reason: Pain (mild 1-3) Last Admin: 07/23/20 17:03 Dose: 400 mg Documented by: Melatonin (Melatonin) 3 mg PO BEDTIME PRN PRN Reason: Insomnia Naloxone HCl (Narcan) 0.04 mg IVPUSH Q3M PRN PRN Reason: Respiratory Depression Omeprazole (Omeprazole) 20 mg PO ACBREAKFAST [facility] Last Admin: 07/24/20 07:50 Dose: 20 mg Documented by: Ondansetron HCl (Zofran) 4 mg IVPUSH Q4H PRN PRN Reason: Nausea/Vomiting Last Admin: 07/21/20 05:00 Dose: 4 mg Documented by: Promethazine HCl (Phenergan) 12.5 mg IM Q6H PRN PRN Reason: Nausea/Vomiting Sodium Chloride (Saline Flush) 10 ml FLUSH ASDIRECTED PRN PRN Reason: Keep Vein Open Last Admin: 07/20/20 14:52 Dose: 10 ml Documented by: Sodium Chloride (Saline Flush) 2.5 ml FLUSH ASDIRECTED PRN PRN Reason: Keep Vein Open Last Admin: 07/20/20 14:51 Dose: 2.5 ml Documented by: Discontinued Medications Hydromorphone HCl (Dilaudid) 1 mg IVPUSH ONETIME ONE Stop: 07/20/20 14:46 Last Admin: 07/20/20 14:50 Dose: 1 mg Documented by: Hydromorphone HCl (Dilaudid) 1 mg IVPUSH ONETIME ONE Stop: 07/20/20 15:12 Last Admin: 07/20/20 15:15 Dose: 1 mg Documented by: Hydromorphone HCl (Dilaudid) 1 mg IVPUSH ONETIME ONE Stop: 07/20/20 17:14 Last Admin: 07/20/20 17:20 Dose: 1 mg Documented by: Hydromorphone HCl (Dilaudid) 0.5 mg IVPUSH Q2H PRN PRN Reason: Pain Hydromorphone HCl (Dilaudid) 0.5 mg IVPUSH Q1H PRN PRN Reason: Pain Last Admin: 07/22/20 08:04 Dose: 0.5 mg Documented by: Hydromorphone HCl (Dilaudid) 0.5 mg IVPUSH Q2H PRN PRN Reason: Pain Last Admin: 07/23/20 07:47 Dose: 0.5 mg Documented by: Hydromorphone HCl (Dilaudid) 0.5 mg IVPUSH ONETIME ONE Stop: 07/23/20 08:47 Last Admin: 07/23/20 08:57 Dose: 0.5 mg Documented by: Hydromorphone HCl (Dilaudid) 1 mg IVPUSH Q4H PRN PRN Reason: Pain Stop: 07/23/20 14:00 Last Admin: 07/23/20 11:37 Dose: 1 mg Documented by: Sodium Chloride (Normal Saline) 1,000 mls @ 999 mls/hr IV .Bolus ONE Stop: 07/20/20 14:17 Last Admin: 07/20/20 13:34 Dose: 999 mls/hr Documented by: Sodium Chloride (Normal Saline) 1,000 mls @ 999 mls/hr IV .Bolus ONE Stop: 07/20/20 17:13 Last Admin: 07/20/20 17:02 Dose: 999 mls/hr Documented by: Sodium Chloride (Normal Saline) 1,000 mls @ 200 mls/hr IV ASDIRECTED [facility] Last Admin: 07/22/20 06:59 Dose: 200 mls/hr Documented by: Sodium Chloride (Normal Saline) 1,000 mls @ 999 mls/hr IV STAT ONE Stop: 07/20/20 20:06 Last Admin: 07/20/20 19:27 Dose: 999 mls/hr Documented by: Sodium Chloride (Normal Saline) 1,000 mls @ 999 mls/hr IV STAT ONE Stop: 07/20/20 20:21 Last Admin: 07/20/20 20:44 Dose: 999 mls/hr Documented by: Potassium Chloride/Sodium Chloride (Normal Saline With 40 Meq Kcl) 1,000 mls @ 150 mls/hr IV ASDIRECTED KASSANDRA Last Admin: 07/22/20 09:23 Dose: 200 mls/hr Documented by: Iopamidol (Isovue Multipack-370 (76%)) 72 ml IVPUSH ONETIME ONE Stop: 07/20/20 14:43 Last Admin: 07/20/20 14:42 Dose: 72 ml Documented by: Lorazepam (Ativan) 1 mg IVPUSH ONETIME ONE Stop: 07/20/20 18:53 Last Admin: 07/20/20 19:24 Dose: 1 mg Documented by: Lorazepam (Ativan) 1 mg IVPUSH ONETIME ONE Stop: 07/23/20 19:07 Last Admin: 07/23/20 19:21 Dose: 1 mg Documented by: Lorazepam (Ativan) 1 mg IVPUSH ONETIME ONE Stop: 07/24/20 07:46 Last Admin: 07/24/20 07:50 Dose: 1 mg Documented by: Morphine Sulfate (Morphine) 4 mg IVPUSH ONETIME ONE Stop: 07/20/20 13:18 Last Admin: 07/20/20 13:37 Dose: 4 mg Documented by: Ondansetron HCl (Zofran) 4 mg IVPUSH ONETIME ONE Stop: 07/20/20 13:18 Last Admin: 07/20/20 13:35 Dose: 4 mg Documented by: Ondansetron HCl (Zofran) 8 mg IVPUSH ONETIME ONE Stop: 07/20/20 17:01 Last Admin: 07/20/20 17:09 Dose: Not Given Documented by: Ondansetron HCl (Zofran) 4 mg IVPUSH ONETIME ONE Stop: 07/20/20 17:06 Last Admin: 07/20/20 17:07 Dose: 4 mg Documented by: Ondansetron HCl (Zofran) 4 mg IVPUSH Q6H PRN PRN Reason: Nausea/Vomiting Potassium Chloride (Klor-Con M20) 40 meq PO ONETIME ONE Stop: 07/22/20 08:21 Potassium Chloride (Klor-Con M20) 40 meq PO ONETIME ONE Stop: 07/23/20 07:58 Last Admin: 07/23/20 08:36 Dose: 40 meq Documented by: Potassium Chloride (Klor-Con M20) 40 meq PO ONETIME ONE Stop: 07/24/20 07:46 Last Admin: 07/24/20 07:50 Dose: 40 meq Documented by: Promethazine HCl (Phenergan) 12.5 mg IM ONETIME ONE Stop: 07/20/20 17:52 Last Admin: 07/20/20 18:06 Dose: 12.5 mg Documented by: Promethazine HCl (Phenergan) 25 mg PO Q6H PRN PRN Reason: Nausea/Vomiting Sepsis Event Note - Focused Exam Vital Signs: Vital Signs Temp Pulse Resp BP Pulse Ox 07/24/20 08:09 36.7 C 95 07/24/20 08:00 36.7 C 88 20 110/60 95 07/24/20 03:00 36.6 C 96 16 128/68 96 07/23/20 23:00 36.6 C 89 16 116/75 95 - Problem List & Annotations (1) Pancreatitis SNOMED Code(s): 38805876 Code(s): K85.90 - ACUTE PANCREATITIS WITHOUT NECROSIS OR INFECTION, UNSP Status: Acute Current Visit: Yes Qualifiers: Chronicity: acute Pancreatitis type: unspecified pancreatitis type Acute pancreatitis complication: unspecified Qualified Code(s): K85.90 - Acute pancreatitis without necrosis or infection, unspecified - Assessment Assessment:: I have seen and evaluated the patient and agree with the residents note unless specified in my note
[2020-07-23] MEDS ORDERED: HYDROmorphone 2 MG/ML Syringe IVPUSH ONE (08:46)
[2020-07-23] MEDS ORDERED: Naloxone 0.4 MG/ML Syringe IVPUSH PRN (09:55)
[2020-07-23] MEDS ORDERED: diphenhydrAMINE 50 MG/ML SDV IVPUSH PRN (09:55)
[2020-07-23] MEDS ORDERED: HYDROmorphone/Normal Saline 10 MG/50 ML PCA IV SCH (10:00)
[2020-07-23] MEDS: HYDROMORPHONE IV SCH (11:39)
[2020-07-23] MEDS: SODIUM CHLORIDE 0.9% IV SCH (11:39)
[2020-07-23] MEDS ORDERED: HYDROmorphone 2 MG/ML Syringe IVPUSH PRN (12:00)
[2020-07-23] MEDS: Ibuprofen 400 MG Tab PO PRN (17:03)
[2020-07-23] MEDS ORDERED: LORazepam 2 MG/ML SDV IVPUSH ONE (19:06)
[2020-07-24] MEDS: Sodium Chloride 0.9% 1,000 ML IV SCH ×3 (05:43→19:16)
[2020-07-24] MEDS: Heparin Sodium 5,000 Units/ML Vial SUBCUT SCH ×2 (05:44→17:02)
[2020-07-24 06:12] LABS: BLOOD UREA NITROGEN,BUN 4 mg/dL (7.0-18.0); GLUCOSE RANDOM 75 mg/dL (74-106)
[2020-07-24 06:18] LABS: CHLORIDE,CL 102 mmol/L (98-107); POTASSIUM,K 3.4 mmol/L (3.5-5.1); SODIUM,NA 137 mmol/L (136-145)
[2020-07-24] MEDS ORDERED: Potassium Chloride 20 MEQ Tab.ER PO ONE (07:45)
[2020-07-24] MEDS ORDERED: LORazepam 2 MG/ML SDV IVPUSH ONE (07:45)
[2020-07-24] MEDS: Omeprazole 20 MG Cap.CR PO SCH (07:50)
--- NOTE | 2020-07-24 08:25 | PCM.PN ---
<Niki Mcarthur - Last Filed: 07/24/20 11:23> - General Info Date of Service: 07/24/20 Subjective Update: Bedside: endorses the ativan helped w. sleep/pain but only until 3am; mentions "background pain" is better but the breakthrough pain is not under control despite the [employer] pump; mentions no nausea/vomiting but endorses no appetite as well. Functional Status: Denies: Pain Controlled - Review of Systems General: Reports: No Symptoms HEENT: Reports: No Symptoms Pulmonary: Reports: No Symptoms. Denies: Shortness of Breath Cardiovascular: Reports: No Symptoms Gastrointestinal: Reports: Abdominal Pain, Decreased Appetite. Denies: Diarrhea, Nausea, Vomiting Genitourinary: Reports: No Symptoms Musculoskeletal: Reports: No Symptoms Skin: Reports: No Symptoms Neurological: Reports: No Symptoms - Patient Data Vitals - Most Recent: Last Vital Signs Temp 98.1 F 07/24/20 08:09 Pulse 95 07/24/20 08:09 Resp 16 07/24/20 03:00 BP 128/68 07/24/20 03:00 Pulse Ox 96 07/24/20 03:00 Weight - Most Recent: 62.397 kg I&O - Last 24 Hours: Intake & Output 07/23/20 07/24/20 07/24/20 22:59 06:59 14:59 Intake Total 60 50 Output Total 1700 2600 Balance -1640 -2550 Lab Results Last 24 Hours: Laboratory Results - last 24 hr 07/24/20 07/24/20 Range/Units 05:06 05:06 WBC 9.40 (4.0-11.0) K/uL RBC 4.11 L (4.30-5.90) M/uL Hgb 10.7 L (12.0-16.0) g/dL Hct 33.4 L (36.0-46.0) % MCV 81.3 (80.0-98.0) fL MCH 26.0 L (27.0-32.0) pg MCHC 32.0 (31.0-37.0) g/dL RDW Std Deviation 43.1 (28.0-62.0) fl RDW Coeff of Maryam 14 (11.0-15.0) % Plt Count 171 (150-400) K/uL MPV 9.20 (7.40-12.00) fL Neut % (Auto) 76.4 (48.0-80.0) % Lymph % (Auto) 11.4 L (16.0-40.0) % Haines % (Auto) 10.3 (0.0-15.0) % Eos % (Auto) 1.7 (0.0-7.0) % Baso % (Auto) 0.2 (0.0-1.5) % Neut # (Auto) 7.2 H (1.4-5.7) K/uL Lymph # (Auto) 1.1 (0.6-2.4) K/uL Haines # (Auto) 1.0 H (0.0-0.8) K/uL Eos # (Auto) 0.2 (0.0-0.7) K/uL Baso # (Auto) 0.0 (0.0-0.1) K/uL Nucleated RBC % 0.0 /100WBC Nucleated RBCs # 0 K/uL Sodium 137 (136-145) mmol/L Potassium 3.4 L (3.5-5.1) mmol/L Chloride 102 (98-107) mmol/L Carbon Dioxide 20.0 L (21.0-32.0) mmol/L BUN 4 L (7.0-18.0) mg/dL Creatinine 0.5 L (0.6-1.0) mg/dL Est Cr Clr Drug Dosing 149.82 mL/min Estimated GFR (MDRD) > 60.0 ml/min Glucose 75 (74-106) mg/dL Calcium 8.3 L (8.5-10.1) mg/dL Total Bilirubin 0.7 (0.2-1.0) mg/dL AST 11 L (15-37) IU/L ALT 29 (14-63) IU/L Alkaline Phosphatase 71 (46-116) U/L Total Protein 6.1 L (6.4-8.2) g/dL Albumin 2.5 L (3.4-5.0) g/dL Globulin 3.6 (2.6-4.0) g/dL Albumin/Globulin Ratio 0.7 L (0.9-1.6) Med Orders - Current: Current Medications Acetaminophen (Tylenol Extra Strength) 500 mg PO Q6H PRN PRN Reason: Pain Last Admin: 07/22/20 21:23 Dose: 500 mg Documented by: Diphenhydramine HCl (Benadryl) 25 mg IVPUSH Q6H PRN PRN Reason: Itching Heparin Sodium (Porcine) (Heparin Sodium) 5,000 units SUBCUT Q12H KASSANDRA Last Admin: 07/24/20 05:44 Dose: 5,000 units Documented by: Sodium Chloride (Normal Saline) 1,000 mls @ 150 mls/hr IV CONTINUOUS KASSANDRA Last Admin: 07/24/20 05:43 Dose: 150 mls/hr Documented by: Hydromorphone HCl 10 mg/ (Sodium Chloride) 50 mls @ 0.5 mls/hr IV ASDIRECTED KASSANDRA; Protocol Last Admin: 07/23/20 11:39 Dose: 0.1 mg/hr, 0.5 mls/hr Documented by: Ibuprofen (Motrin) 400 mg PO Q6H PRN PRN Reason: Pain (mild 1-3) Last Admin: 07/23/20 17:03 Dose: 400 mg Documented by: Melatonin (Melatonin) 3 mg PO BEDTIME PRN PRN Reason: Insomnia Naloxone HCl (Narcan) 0.04 mg IVPUSH Q3M PRN PRN Reason: Respiratory Depression Omeprazole (Omeprazole) 20 mg PO ACBREAKFAST [facility] Last Admin: 07/24/20 07:50 Dose: 20 mg Documented by: Ondansetron HCl (Zofran) 4 mg IVPUSH Q4H PRN PRN Reason: Nausea/Vomiting Last Admin: 07/21/20 05:00 Dose: 4 mg Documented by: Promethazine HCl (Phenergan) 12.5 mg IM Q6H PRN PRN Reason: Nausea/Vomiting Sodium Chloride (Saline Flush) 10 ml FLUSH ASDIRECTED PRN PRN Reason: Keep Vein Open Last Admin: 07/20/20 14:52 Dose: 10 ml Documented by: Sodium Chloride (Saline Flush) 2.5 ml FLUSH ASDIRECTED PRN PRN Reason: Keep Vein Open Last Admin: 07/20/20 14:51 Dose: 2.5 ml Documented by: Discontinued Medications Hydromorphone HCl (Dilaudid) 1 mg IVPUSH ONETIME ONE Stop: 07/20/20 14:46 Last Admin: 07/20/20 14:50 Dose: 1 mg Documented by: Hydromorphone HCl (Dilaudid) 1 mg IVPUSH ONETIME ONE Stop: 07/20/20 15:12 Last Admin: 07/20/20 15:15 Dose: 1 mg Documented by: Hydromorphone HCl (Dilaudid) 1 mg IVPUSH ONETIME ONE Stop: 07/20/20 17:14 Last Admin: 07/20/20 17:20 Dose: 1 mg Documented by: Hydromorphone HCl (Dilaudid) 0.5 mg IVPUSH Q2H PRN PRN Reason: Pain Hydromorphone HCl (Dilaudid) 0.5 mg IVPUSH Q1H PRN PRN Reason: Pain Last Admin: 07/22/20 08:04 Dose: 0.5 mg Documented by: Hydromorphone HCl (Dilaudid) 0.5 mg IVPUSH Q2H PRN PRN Reason: Pain Last Admin: 07/23/20 07:47 Dose: 0.5 mg Documented by: Hydromorphone HCl (Dilaudid) 0.5 mg IVPUSH ONETIME ONE Stop: 07/23/20 08:47 Last Admin: 07/23/20 08:57 Dose: 0.5 mg Documented by: Hydromorphone HCl (Dilaudid) 1 mg IVPUSH Q4H PRN PRN Reason: Pain Stop: 07/23/20 14:00 Last Admin: 07/23/20 11:37 Dose: 1 mg Documented by: Sodium Chloride (Normal Saline) 1,000 mls @ 999 mls/hr IV .Bolus ONE Stop: 07/20/20 14:17 Last Admin: 07/20/20 13:34 Dose: 999 mls/hr Documented by: Sodium Chloride (Normal Saline) 1,000 mls @ 999 mls/hr IV .Bolus ONE Stop: 07/20/20 17:13 Last Admin: 07/20/20 17:02 Dose: 999 mls/hr Documented by: Sodium Chloride (Normal Saline) 1,000 mls @ 200 mls/hr IV ASDIRECTED KASSANDRA Last Admin: 07/22/20 06:59 Dose: 200 mls/hr Documented by: Sodium Chloride (Normal Saline) 1,000 mls @ 999 mls/hr IV STAT ONE Stop: 07/20/20 20:06 Last Admin: 07/20/20 19:27 Dose: 999 mls/hr Documented by: Sodium Chloride (Normal Saline) 1,000 mls @ 999 mls/hr IV STAT ONE Stop: 07/20/20 20:21 Last Admin: 07/20/20 20:44 Dose: 999 mls/hr Documented by: Potassium Chloride/Sodium Chloride (Normal Saline With 40 Meq Kcl) 1,000 mls @ 150 mls/hr IV ASDIRECTED [facility] Last Admin: 07/22/20 09:23 Dose: 200 mls/hr Documented by: Iopamidol (Isovue Multipack-370 (76%)) 72 ml IVPUSH ONETIME ONE Stop: 07/20/20 14:43 Last Admin: 07/20/20 14:42 Dose: 72 ml Documented by: Lorazepam (Ativan) 1 mg IVPUSH ONETIME ONE Stop: 07/20/20 18:53 Last Admin: 07/20/20 19:24 Dose: 1 mg Documented by: Lorazepam (Ativan) 1 mg IVPUSH ONETIME ONE Stop: 07/23/20 19:07 Last Admin: 07/23/20 19:21 Dose: 1 mg Documented by: Lorazepam (Ativan) 1 mg IVPUSH ONETIME ONE Stop: 07/24/20 07:46 Last Admin: 07/24/20 07:50 Dose: 1 mg Documented by: Morphine Sulfate (Morphine) 4 mg IVPUSH ONETIME ONE Stop: 07/20/20 13:18 Last Admin: 07/20/20 13:37 Dose: 4 mg Documented by: Ondansetron HCl (Zofran) 4 mg IVPUSH ONETIME ONE Stop: 07/20/20 13:18 Last Admin: 07/20/20 13:35 Dose: 4 mg Documented by: Ondansetron HCl (Zofran) 8 mg IVPUSH ONETIME ONE Stop: 07/20/20 17:01 Last Admin: 07/20/20 17:09 Dose: Not Given Documented by: Ondansetron HCl (Zofran) 4 mg IVPUSH ONETIME ONE Stop: 07/20/20 17:06 Last Admin: 07/20/20 17:07 Dose: 4 mg Documented by: Ondansetron HCl (Zofran) 4 mg IVPUSH Q6H PRN PRN Reason: Nausea/Vomiting Potassium Chloride (Klor-Con M20) 40 meq PO ONETIME ONE Stop: 07/22/20 08:21 Potassium Chloride (Klor-Con M20) 40 meq PO ONETIME ONE Stop: 07/23/20 07:58 Last Admin: 07/23/20 08:36 Dose: 40 meq Documented by: Potassium Chloride (Klor-Con M20) 40 meq PO ONETIME ONE Stop: 07/24/20 07:46 Last Admin: 07/24/20 07:50 Dose: 40 meq Documented by: Promethazine HCl (Phenergan) 12.5 mg IM ONETIME ONE Stop: 07/20/20 17:52 Last Admin: 07/20/20 18:06 Dose: 12.5 mg Documented by: Promethazine HCl (Phenergan) 25 mg PO Q6H PRN PRN Reason: Nausea/Vomiting - Exam Quality Assessment: No: Supplemental Oxygen General: Alert, Oriented, Mild Distress HEENT: EOMI, Mucous Membr. Moist/[place] Neck: Supple Lungs: Other (diminshed breath sounds ) Cardiovascular: Regular Rate, Regular Rhythm GI/Abdominal Exam: Other (diffusely tender; LUQ > then rest of abdomen ) Back Exam: Normal Inspection Neurological: No New Focal Deficit Psy/Mental Status: Alert, Depressed Sepsis Event Note - Evaluation Sepsis Screening Result: No Definite Risk - Focused Exam Vital Signs: Vital Signs Temp Pulse Resp BP Pulse Ox 07/24/20 08:09 98.1 F 95 07/24/20 03:00 97.9 F 96 16 128/68 96 07/23/20 23:00 97.9 F 89 16 116/75 95 - Problem List & Annotations (1) Pancreatitis SNOMED Code(s): 98776171 Code(s): K85.90 - ACUTE PANCREATITIS WITHOUT NECROSIS OR INFECTION, UNSP Status: Acute Current Visit: Yes Qualifiers: Chronicity: acute Pancreatitis type: unspecified pancreatitis type Acute pancreatitis complication: unspecified Qualified Code(s): K85.90 - Acute pancreatitis without necrosis or infection, unspecified - Problem List Review Problem List Initiated/Reviewed/Updated: Yes - My Orders Last 24 Hours: My Active Orders 07/23/20 12:30 Obtain Past Medical Record [OM.PC] Routine 07/25/20 05:11 CBC WITH AUTO DIFF [HEME] AM COMPREHENSIVE METABOLIC PN,CMP [CHEM] AM - Assessment Assessment:: Assessment: 1. Acute pancreatitis of unknown etiology 2. Leukocytosis:resolved 3. Hypertriglyceridemia. 4. Covid negative. 5 Hypokalemia Plan Admit to observation. Full code. I's and O's per routine. vitals per routine. 1. Acute pancreatitis: continue with IV fluids, bowel rest and pain control. MRCP: acute pancreatitis w. peripancreatic fluid and left pararenal asciitis ; concerns regarding fluid accumulation noted; Preliminary auto-immune panel ordered dsDNA, MATTHIAS, and IgG (AIP-SC criteria lab): pending (send out) Fluids: NS 150 cc/hr ; goal is 60 cc urine output Pain control: pt still having significant breakthrough pain; increase bolus settings on [employer] pump w. Dilaudid ; Vistaril PRN anxiety later today if necessary; Leukocytosis: resolved Hypokalemia: 40 PO K chloride this AM l recheck in AM Normocytic anemia: no overt signs of bleeding ; most likely secondary to dilutions effect Hypoalbuminemia: decrease in PO status + dilutional ; continue to monitor No other significant PMH per patient. - Plan Plan:: Patient seen and examined by me independently, discussed management plan with the resident and agree with the note above. <Barbara Ribeiro - Last Filed: 07/24/20 23:30> - General Info Subjective Update: I have seen and evaluated the patient. I have discussed findings and treatment plan with resident. I agree with the assessment and plan in the following note, patient reassessed by me, pain is much better after adjusting the pump settings, resting comfortably - Patient Data Vitals - Most Recent: Last Vital Signs Temp 36.7 C 07/24/20 08:09 Pulse 95 07/24/20 08:09 Resp 20 07/24/20 08:00 BP 110/60 07/24/20 08:00 Pulse Ox 95 07/24/20 08:00 I&O - Last 24 Hours: Intake & Output 07/23/20 07/24/20 07/24/20 22:59 06:59 14:59 Intake Total 60 50 Output Total 1700 2600 Balance -1640 -2550 Lab Results Last 24 Hours: Laboratory Results - last 24 hr 07/24/20 07/24/20 Range/Units 05:06 05:06 WBC 9.40 (4.0-11.0) K/uL RBC 4.11 L (4.30-5.90) M/uL Hgb 10.7 L (12.0-16.0) g/dL Hct 33.4 L (36.0-46.0) % MCV 81.3 (80.0-98.0) fL MCH 26.0 L (27.0-32.0) pg MCHC 32.0 (31.0-37.0) g/dL RDW Std Deviation 43.1 (28.0-62.0) fl RDW Coeff of Maryam 14 (11.0-15.0) % Plt Count 171 (150-400) K/uL MPV 9.20 (7.40-12.00) fL Neut % (Auto) 76.4 (48.0-80.0) % Lymph % (Auto) 11.4 L (16.0-40.0) % Haines % (Auto) 10.3 (0.0-15.0) % Eos % (Auto) 1.7 (0.0-7.0) % Baso % (Auto) 0.2 (0.0-1.5) % Neut # (Auto) 7.2 H (1.4-5.7) K/uL Lymph # (Auto) 1.1 (0.6-2.4) K/uL Haines # (Auto) 1.0 H (0.0-0.8) K/uL Eos # (Auto) 0.2 (0.0-0.7) K/uL Baso # (Auto) 0.0 (0.0-0.1) K/uL Nucleated RBC % 0.0 /100WBC Nucleated RBCs # 0 K/uL Sodium 137 (136-145) mmol/L Potassium 3.4 L (3.5-5.1) mmol/L Chloride 102 (98-107) mmol/L Carbon Dioxide 20.0 L (21.0-32.0) mmol/L BUN 4 L (7.0-18.0) mg/dL Creatinine 0.5 L (0.6-1.0) mg/dL Est Cr Clr Drug Dosing 149.82 mL/min Estimated GFR (MDRD) > 60.0 ml/min Glucose 75 (74-106) mg/dL Calcium 8.3 L (8.5-10.1) mg/dL Total Bilirubin 0.7 (0.2-1.0) mg/dL AST 11 L (15-37) IU/L ALT 29 (14-63) IU/L Alkaline Phosphatase 71 (46-116) U/L Total Protein 6.1 L (6.4-8.2) g/dL Albumin 2.5 L (3.4-5.0) g/dL Globulin 3.6 (2.6-4.0) g/dL Albumin/Globulin Ratio 0.7 L (0.9-1.6) Med Orders - Current: Current Medications Acetaminophen (Tylenol Extra Strength) 500 mg PO Q6H PRN PRN Reason: Pain Last Admin: 07/22/20 21:23 Dose: 500 mg Documented by: Diphenhydramine HCl (Benadryl) 25 mg IVPUSH Q6H PRN PRN Reason: Itching Heparin Sodium (Porcine) (Heparin Sodium) 5,000 units SUBCUT Q12H KASSANDRA Last Admin: 07/24/20 05:44 Dose: 5,000 units Documented by: Sodium Chloride (Normal Saline) 1,000 mls @ 150 mls/hr IV CONTINUOUS KASSANDRA Last Admin: 07/24/20 05:43 Dose: 150 mls/hr Documented by: Hydromorphone HCl 10 mg/ (Sodium Chloride) 50 mls @ 0.5 mls/hr IV ASDIRECTED KASSANDRA; Protocol Last Admin: 07/23/20 11:39 Dose: 0.1 mg/hr, 0.5 mls/hr Documented by: Ibuprofen (Motrin) 400 mg PO Q6H PRN PRN Reason: Pain (mild 1-3) Last Admin: 07/23/20 17:03 Dose: 400 mg Documented by: Melatonin (Melatonin) 3 mg PO BEDTIME PRN PRN Reason: Insomnia Naloxone HCl (Narcan) 0.04 mg IVPUSH Q3M PRN PRN Reason: Respiratory Depression Omeprazole (Omeprazole) 20 mg PO ACBREAKFAST KASSANDRA Last Admin: 07/24/20 07:50 Dose: 20 mg Documented by: Ondansetron HCl (Zofran) 4 mg IVPUSH Q4H PRN PRN Reason: Nausea/Vomiting Last Admin: 07/21/20 05:00 Dose: 4 mg Documented by: Promethazine HCl (Phenergan) 12.5 mg IM Q6H PRN PRN Reason: Nausea/Vomiting Sodium Chloride (Saline Flush) 10 ml FLUSH ASDIRECTED PRN PRN Reason: Keep Vein Open Last Admin: 07/20/20 14:52 Dose: 10 ml Documented by: Sodium Chloride (Saline Flush) 2.5 ml FLUSH ASDIRECTED PRN PRN Reason: Keep Vein Open Last Admin: 07/20/20 14:51 Dose: 2.5 ml Documented by: Discontinued Medications Hydromorphone HCl (Dilaudid) 1 mg IVPUSH ONETIME ONE Stop: 07/20/20 14:46 Last Admin: 07/20/20 14:50 Dose: 1 mg Documented by: Hydromorphone HCl (Dilaudid) 1 mg IVPUSH ONETIME ONE Stop: 07/20/20 15:12 Last Admin: 07/20/20 15:15 Dose: 1 mg Documented by: Hydromorphone HCl (Dilaudid) 1 mg IVPUSH ONETIME ONE Stop: 07/20/20 17:14 Last Admin: 07/20/20 17:20 Dose: 1 mg Documented by: Hydromorphone HCl (Dilaudid) 0.5 mg IVPUSH Q2H PRN PRN Reason: Pain Hydromorphone HCl (Dilaudid) 0.5 mg IVPUSH Q1H PRN PRN Reason: Pain Last Admin: 07/22/20 08:04 Dose: 0.5 mg Documented by: Hydromorphone HCl (Dilaudid) 0.5 mg IVPUSH Q2H PRN PRN Reason: Pain Last Admin: 07/23/20 07:47 Dose: 0.5 mg Documented by: Hydromorphone HCl (Dilaudid) 0.5 mg IVPUSH ONETIME ONE Stop: 07/23/20 08:47 Last Admin: 07/23/20 08:57 Dose: 0.5 mg Documented by: Hydromorphone HCl (Dilaudid) 1 mg IVPUSH Q4H PRN PRN Reason: Pain Stop: 07/23/20 14:00 Last Admin: 07/23/20 11:37 Dose: 1 mg Documented by: Sodium Chloride (Normal Saline) 1,000 mls @ 999 mls/hr IV .Bolus ONE Stop: 07/20/20 14:17 Last Admin: 07/20/20 13:34 Dose: 999 mls/hr Documented by: Sodium Chloride (Normal Saline) 1,000 mls @ 999 mls/hr IV .Bolus ONE Stop: 07/20/20 17:13 Last Admin: 07/20/20 17:02 Dose: 999 mls/hr Documented by: Sodium Chloride (Normal Saline) 1,000 mls @ 200 mls/hr IV ASDIRECTED [facility] Last Admin: 07/22/20 06:59 Dose: 200 mls/hr Documented by: Sodium Chloride (Normal Saline) 1,000 mls @ 999 mls/hr IV STAT ONE Stop: 07/20/20 20:06 Last Admin: 07/20/20 19:27 Dose: 999 mls/hr Documented by: Sodium Chloride (Normal Saline) 1,000 mls @ 999 mls/hr IV STAT ONE Stop: 07/20/20 20:21 Last Admin: 07/20/20 20:44 Dose: 999 mls/hr Documented by: Potassium Chloride/Sodium Chloride (Normal Saline With 40 Meq Kcl) 1,000 mls @ 150 mls/hr IV ASDIRECTED [facility] Last Admin: 07/22/20 09:23 Dose: 200 mls/hr Documented by: Iopamidol (Isovue Multipack-370 (76%)) 72 ml IVPUSH ONETIME ONE Stop: 07/20/20 14:43 Last Admin: 07/20/20 14:42 Dose: 72 ml Documented by: Lorazepam (Ativan) 1 mg IVPUSH ONETIME ONE Stop: 07/20/20 18:53 Last Admin: 07/20/20 19:24 Dose: 1 mg Documented by: Lorazepam (Ativan) 1 mg IVPUSH ONETIME ONE Stop: 07/23/20 19:07 Last Admin: 07/23/20 19:21 Dose: 1 mg Documented by: Lorazepam (Ativan) 1 mg IVPUSH ONETIME ONE Stop: 07/24/20 07:46 Last Admin: 07/24/20 07:50 Dose: 1 mg Documented by: Morphine Sulfate (Morphine) 4 mg IVPUSH ONETIME ONE Stop: 07/20/20 13:18 Last Admin: 07/20/20 13:37 Dose: 4 mg Documented by: Ondansetron HCl (Zofran) 4 mg IVPUSH ONETIME ONE Stop: 07/20/20 13:18 Last Admin: 07/20/20 13:35 Dose: 4 mg Documented by: Ondansetron HCl (Zofran) 8 mg IVPUSH ONETIME ONE Stop: 07/20/20 17:01 Last Admin: 07/20/20 17:09 Dose: Not Given Documented by: Ondansetron HCl (Zofran) 4 mg IVPUSH ONETIME ONE Stop: 07/20/20 17:06 Last Admin: 07/20/20 17:07 Dose: 4 mg Documented by: Ondansetron HCl (Zofran) 4 mg IVPUSH Q6H PRN PRN Reason: Nausea/Vomiting Potassium Chloride (Klor-Con M20) 40 meq PO ONETIME ONE Stop: 07/22/20 08:21 Potassium Chloride (Klor-Con M20) 40 meq PO ONETIME ONE Stop: 07/23/20 07:58 Last Admin: 07/23/20 08:36 Dose: 40 meq Documented by: Potassium Chloride (Klor-Con M20) 40 meq PO ONETIME ONE Stop: 07/24/20 07:46 Last Admin: 07/24/20 07:50 Dose: 40 meq Documented by: Promethazine HCl (Phenergan) 12.5 mg IM ONETIME ONE Stop: 07/20/20 17:52 Last Admin: 07/20/20 18:06 Dose: 12.5 mg Documented by: Promethazine HCl (Phenergan) 25 mg PO Q6H PRN PRN Reason: Nausea/Vomiting Sepsis Event Note - Focused Exam Vital Signs: Vital Signs Temp Pulse Resp BP Pulse Ox 07/24/20 08:09 36.7 C 95 07/24/20 08:00 36.7 C 88 20 110/60 95 07/24/20 03:00 36.6 C 96 16 128/68 96 07/23/20 23:00 36.6 C 89 16 116/75 95 - Problem List & Annotations (1) Pancreatitis SNOMED Code(s): 16516526 Code(s): K85.90 - ACUTE PANCREATITIS WITHOUT NECROSIS OR INFECTION, UNSP Status: Acute Current Visit: Yes Qualifiers: Chronicity: acute Pancreatitis type: unspecified pancreatitis type Acute pancreatitis complication: unspecified Qualified Code(s): K85.90 - Acute pancreatitis without necrosis or infection, unspecified - Plan Plan:: I have seen and evaluated the patient and agree with the residents note unless specified in my note
[2020-07-24] MEDS: SODIUM CHLORIDE 0.9% IV SCH (11:29)
[2020-07-24] MEDS: HYDROMORPHONE IV SCH (11:29)
[2020-07-25] MEDS: Sodium Chloride 0.9% 1,000 ML IV SCH (01:59)
[2020-07-25] MEDS ORDERED: Ketorolac 15 MG/ML SDV IM ONE (03:23)
[2020-07-25] MEDS ORDERED: LORazepam 2 MG/ML SDV IVPUSH ONE (03:24)
[2020-07-25] MEDS: Morphine 4 MG/ML Syringe IVPUSH PRN ×3 (03:32→12:24)
[2020-07-25] MEDS ORDERED: Ketorolac 15 MG/ML SDV IVPUSH PRN (04:39)
[2020-07-25] MEDS: Heparin Sodium 5,000 Units/ML Vial SUBCUT SCH (05:34)
[2020-07-25 06:19] LABS: BLOOD UREA NITROGEN,BUN 4 mg/dL (7.0-18.0); CARBON DIOXIDE,CO2 19.4 mmol/L (21.0-32.0); CHLORIDE,CL 101 mmol/L (98-107); GLUCOSE RANDOM 79 mg/dL (74-106); POTASSIUM,K 3.5 mmol/L (3.5-5.1); SODIUM,NA 137 mmol/L (136-145)
[2020-07-25] MEDS ORDERED: Iopamidol 755 MG/ML 500 ML Multipack Bottle IVPUSH STA (07:31)
[2020-07-25] MEDS: Omeprazole 20 MG Cap.CR PO SCH (07:37)
--- NOTE | 2020-07-25 07:51 | CT ---
INDICATION: Persistent abdominal pain in the setting of pancreatitis COMPARISON: July 20, 2020 TECHNIQUE: CT examination of the abdomen was performed before and after the uneventful intravenous administration of 75 cc of Isovue 370. Thin section axial images were obtained from the lung bases through the iliac crests. Sagittal and coronal reformat imaging was performed. Oral contrast was not administered. Please note that all CT scans at this facility use dose modulation, iterative reconstruction, and/or weight-based dosing when appropriate to reduce radiation dose to as low as reasonably achievable. FINDINGS: LUNG BASES: Minimal basilar atelectasis. Tiny right effusion. Small right effusion. The lung bases have worsened since the prior study.The heart size is normal at the lung bases. LIVER/BILIARY SYSTEM:The liver is normal in size and configuration. There is no focal mass and there is no intra- or extra hepatic biliary ductal dilatation.There is persistent contrast in the gallbladder from a previous injection. ADRENALS: Normal KIDNEYS:The kidneys appear normal. No visible mass, calculus or hydronephrosis. SPLEEN:Normal appearance. PANCREAS: There are significant peripancreatic inflammatory changes especially about the body and tail extending into the splenic hilus in the left upper quadrant. This has worsened. There is also more fluid free within the abdomen especially within the paracolic gutters which represents a significant change. There is no density of the pancreatic tail best seen on axial image number 48 and 49 when compared to the enhancement pattern of the remainder of the pancreas. This could represent a focal area of necrotizing pancreatitis. There is no collection. RETROPERITONEUM and MESENTERY: There is no mass, adenopathy or aortic aneurysm. GASTROINTESTINAL SYSTEM: There is no evidence of diverticulitis, colitis, mechanical obstruction, or appendicitis. The small bowel as visualized appears normal. OSSEOUS STRUCTURES and ABDOMINAL WALL: There is an age-appropriate appearance of the osseous structures.No significant abdominal wall defect. IMPRESSION: 1. There are findings of acute pancreatitis that have worsened. There are worsening peripancreatic inflammatory changes about the body and tail and near the splenic hilus. There is also free fluid in the paracolic gutters which is essentially new. 2. Focal area of decreased enhancement of the pancreatic tail near the splenic hilus suggests a focal developing area of necrotizing pancreatitis. 3. No collection apparent Please note that all CT scans at this facility use dose modulation, iterative reconstruction, and/or weight-based dosing when appropriate to reduce radiation dose to as low as reasonably achievable. Dictated by Amaury Fernandez MD @ Jul 25 2020 7:39AM Signed by Dr. Amaury Fernandez @ Jul 25 2020 7:48AM
[2020-07-25] MEDS ORDERED: Meropenem Premix 50 ML IV SCH (08:30)
--- NOTE | 2020-07-25 09:26 | PCM.PN ---
- General Info Date of Service: 07/25/20 Subjective Update: Bedside: pain improving w. current regimen; received overnight dose of Morphine w. food response. Endorses feeling hungry but afraid to eat. No new acute pain and or discomfort - Review of Systems General: Reports: Fatigue. Denies: Appetite HEENT: Reports: No Symptoms Pulmonary: Reports: No Symptoms Cardiovascular: Reports: No Symptoms Gastrointestinal: Reports: Abdominal Pain, Decreased Appetite, Diarrhea. Denies: Nausea, Vomiting Genitourinary: Reports: No Symptoms Musculoskeletal: Reports: No Symptoms Skin: Reports: No Symptoms Neurological: Denies: Headache - Patient Data Vitals - Most Recent: Last Vital Signs Temp 97.7 F 07/25/20 07:55 Pulse 84 07/25/20 07:55 Resp 17 07/25/20 07:55 BP 124/79 07/25/20 07:55 Pulse Ox 99 07/25/20 07:55 Weight - Most Recent: 62.397 kg I&O - Last 24 Hours: Intake & Output 07/24/20 07/25/20 07/25/20 22:59 06:59 14:59 Intake Total 1863 1850 Output Total 4000 1900 Balance -2137 -50 Lab Results Last 24 Hours: Laboratory Results - last 24 hr 07/25/20 07/25/20 07/25/20 Range/Units 05:17 05:17 05:17 WBC 10.77 (4.0-11.0) K/uL RBC 4.28 L (4.30-5.90) M/uL Hgb 11.2 L (12.0-16.0) g/dL Hct 34.8 L (36.0-46.0) % MCV 81.3 (80.0-98.0) fL MCH 26.2 L (27.0-32.0) pg MCHC 32.2 (31.0-37.0) g/dL RDW Std Deviation 42.6 (28.0-62.0) fl RDW Coeff of Maryam 14 (11.0-15.0) % Plt Count 205 (150-400) K/uL MPV 9.30 (7.40-12.00) fL Neut % (Auto) 75.8 (48.0-80.0) % Lymph % (Auto) 11.8 L (16.0-40.0) % Kemper % (Auto) 10.0 (0.0-15.0) % Eos % (Auto) 2.2 (0.0-7.0) % Baso % (Auto) 0.2 (0.0-1.5) % Neut # (Auto) 8.2 H (1.4-5.7) K/uL Lymph # (Auto) 1.3 (0.6-2.4) K/uL Kemper # (Auto) 1.1 H (0.0-0.8) K/uL Eos # (Auto) 0.2 (0.0-0.7) K/uL Baso # (Auto) 0.0 (0.0-0.1) K/uL Nucleated RBC % 0.0 /100WBC Nucleated RBCs # 0 K/uL Sodium 137 (136-145) mmol/L Potassium 3.5 (3.5-5.1) mmol/L Chloride 101 (98-107) mmol/L Carbon Dioxide 19.4 L (21.0-32.0) mmol/L BUN 4 L (7.0-18.0) mg/dL Creatinine 0.6 (0.6-1.0) mg/dL Est Cr Clr Drug Dosing 124.85 mL/min Estimated GFR (MDRD) > 60.0 ml/min Glucose 79 (74-106) mg/dL Calcium 8.7 (8.5-10.1) mg/dL Total Bilirubin 0.6 (0.2-1.0) mg/dL AST 12 L (15-37) IU/L ALT 25 (14-63) IU/L Alkaline Phosphatase 82 (46-116) U/L Total Protein 6.6 (6.4-8.2) g/dL Albumin 2.6 L (3.4-5.0) g/dL Globulin 4.0 (2.6-4.0) g/dL Albumin/Globulin Ratio 0.7 L (0.9-1.6) Lipase 457 H (73-393) U/L Med Orders - Current: Current Medications Acetaminophen (Tylenol Extra Strength) 500 mg PO Q6H PRN PRN Reason: Pain Last Admin: 07/22/20 21:23 Dose: 500 mg Documented by: Diphenhydramine HCl (Benadryl) 25 mg IVPUSH Q6H PRN PRN Reason: Itching Heparin Sodium (Porcine) (Heparin Sodium) 5,000 units SUBCUT Q12H [facility] Last Admin: 07/25/20 05:34 Dose: 5,000 units Documented by: Sodium Chloride (Normal Saline) 1,000 mls @ 150 mls/hr IV CONTINUOUS KASSANDRA Last Admin: 07/25/20 01:59 Dose: 150 mls/hr Documented by: Hydromorphone HCl 10 mg/ (Sodium Chloride) 50 mls @ 0.5 mls/hr IV ASDIRECTED KASSANDRA; Protocol Last Infusion: 07/25/20 03:14 Dose: 0 mg/hr, 0 mls/hr Documented by: Meropenem/Sodium Chloride (Meropenem In Ns 1 Gm/50 Ml) 50 mls @ 100 mls/hr IV Q8H [facility] Ibuprofen (Motrin) 400 mg PO Q6H PRN PRN Reason: Pain (mild 1-3) Last Admin: 07/23/20 17:03 Dose: 400 mg Documented by: Ketorolac Tromethamine (Toradol) 15 mg IVPUSH Q6H PRN PRN Reason: Pain Stop: 07/30/20 04:39 Melatonin (Melatonin) 3 mg PO BEDTIME PRN PRN Reason: Insomnia Morphine Sulfate (Morphine) 4 mg IVPUSH Q3H PRN PRN Reason: Pain Last Admin: 07/25/20 09:03 Dose: 4 mg Documented by: Naloxone HCl (Narcan) 0.04 mg IVPUSH Q3M PRN PRN Reason: Respiratory Depression Omeprazole (Omeprazole) 20 mg PO ACBREAKFAST [facility] Last Admin: 07/25/20 07:37 Dose: 20 mg Documented by: Ondansetron HCl (Zofran) 4 mg IVPUSH Q4H PRN PRN Reason: Nausea/Vomiting Last Admin: 07/21/20 05:00 Dose: 4 mg Documented by: Promethazine HCl (Phenergan) 12.5 mg IM Q6H PRN PRN Reason: Nausea/Vomiting Sodium Chloride (Saline Flush) 10 ml FLUSH ASDIRECTED PRN PRN Reason: Keep Vein Open Last Admin: 07/20/20 14:52 Dose: 10 ml Documented by: Sodium Chloride (Saline Flush) 2.5 ml FLUSH ASDIRECTED PRN PRN Reason: Keep Vein Open Last Admin: 07/20/20 14:51 Dose: 2.5 ml Documented by: Discontinued Medications Hydromorphone HCl (Dilaudid) 1 mg IVPUSH ONETIME ONE Stop: 07/20/20 14:46 Last Admin: 07/20/20 14:50 Dose: 1 mg Documented by: Hydromorphone HCl (Dilaudid) 1 mg IVPUSH ONETIME ONE Stop: 07/20/20 15:12 Last Admin: 07/20/20 15:15 Dose: 1 mg Documented by: Hydromorphone HCl (Dilaudid) 1 mg IVPUSH ONETIME ONE Stop: 07/20/20 17:14 Last Admin: 07/20/20 17:20 Dose: 1 mg Documented by: Hydromorphone HCl (Dilaudid) 0.5 mg IVPUSH Q2H PRN PRN Reason: Pain Hydromorphone HCl (Dilaudid) 0.5 mg IVPUSH Q1H PRN PRN Reason: Pain Last Admin: 07/22/20 08:04 Dose: 0.5 mg Documented by: Hydromorphone HCl (Dilaudid) 0.5 mg IVPUSH Q2H PRN PRN Reason: Pain Last Admin: 07/23/20 07:47 Dose: 0.5 mg Documented by: Hydromorphone HCl (Dilaudid) 0.5 mg IVPUSH ONETIME ONE Stop: 07/23/20 08:47 Last Admin: 07/23/20 08:57 Dose: 0.5 mg Documented by: Hydromorphone HCl (Dilaudid) 1 mg IVPUSH Q4H PRN PRN Reason: Pain Stop: 07/23/20 14:00 Last Admin: 07/23/20 11:37 Dose: 1 mg Documented by: Sodium Chloride (Normal Saline) 1,000 mls @ 999 mls/hr IV .Bolus ONE Stop: 07/20/20 14:17 Last Admin: 07/20/20 13:34 Dose: 999 mls/hr Documented by: Sodium Chloride (Normal Saline) 1,000 mls @ 999 mls/hr IV .Bolus ONE Stop: 07/20/20 17:13 Last Admin: 07/20/20 17:02 Dose: 999 mls/hr Documented by: Sodium Chloride (Normal Saline) 1,000 mls @ 200 mls/hr IV ASDIRECTED [facility] Last Admin: 07/22/20 06:59 Dose: 200 mls/hr Documented by: Sodium Chloride (Normal Saline) 1,000 mls @ 999 mls/hr IV STAT ONE Stop: 07/20/20 20:06 Last Admin: 07/20/20 19:27 Dose: 999 mls/hr Documented by: Sodium Chloride (Normal Saline) 1,000 mls @ 999 mls/hr IV STAT ONE Stop: 07/20/20 20:21 Last Admin: 07/20/20 20:44 Dose: 999 mls/hr Documented by: Potassium Chloride/Sodium Chloride (Normal Saline With 40 Meq Kcl) 1,000 mls @ 150 mls/hr IV ASDIRECTED [facility] Last Admin: 07/22/20 09:23 Dose: 200 mls/hr Documented by: Iopamidol (Isovue Multipack-370 (76%)) 72 ml IVPUSH ONETIME ONE Stop: 07/20/20 14:43 Last Admin: 07/20/20 14:42 Dose: 72 ml Documented by: Iopamidol (Isovue Multipack-370 (76%)) 75 ml IVPUSH ONETIME STA Stop: 07/25/20 07:32 Last Admin: 07/25/20 07:32 Dose: 75 ml Documented by: Ketorolac Tromethamine (Toradol) 15 mg IM ONETIME ONE Stop: 07/25/20 03:24 Last Admin: 07/25/20 03:37 Dose: 15 mg Documented by: Lorazepam (Ativan) 1 mg IVPUSH ONETIME ONE Stop: 07/20/20 18:53 Last Admin: 07/20/20 19:24 Dose: 1 mg Documented by: Lorazepam (Ativan) 1 mg IVPUSH ONETIME ONE Stop: 07/23/20 19:07 Last Admin: 07/23/20 19:21 Dose: 1 mg Documented by: Lorazepam (Ativan) 1 mg IVPUSH ONETIME ONE Stop: 07/24/20 07:46 Last Admin: 07/24/20 07:50 Dose: 1 mg Documented by: Lorazepam (Ativan) 1 mg IVPUSH ONETIME ONE Stop: 07/25/20 03:25 Last Admin: 07/25/20 04:06 Dose: 1 mg Documented by: Morphine Sulfate (Morphine) 4 mg IVPUSH ONETIME ONE Stop: 07/20/20 13:18 Last Admin: 07/20/20 13:37 Dose: 4 mg Documented by: Ondansetron HCl (Zofran) 4 mg IVPUSH ONETIME ONE Stop: 07/20/20 13:18 Last Admin: 07/20/20 13:35 Dose: 4 mg Documented by: Ondansetron HCl (Zofran) 8 mg IVPUSH ONETIME ONE Stop: 07/20/20 17:01 Last Admin: 07/20/20 17:09 Dose: Not Given Documented by: Ondansetron HCl (Zofran) 4 mg IVPUSH ONETIME ONE Stop: 07/20/20 17:06 Last Admin: 07/20/20 17:07 Dose: 4 mg Documented by: Ondansetron HCl (Zofran) 4 mg IVPUSH Q6H PRN PRN Reason: Nausea/Vomiting Potassium Chloride (Klor-Con M20) 40 meq PO ONETIME ONE Stop: 07/22/20 08:21 Potassium Chloride (Klor-Con M20) 40 meq PO ONETIME ONE Stop: 07/23/20 07:58 Last Admin: 07/23/20 08:36 Dose: 40 meq Documented by: Potassium Chloride (Klor-Con M20) 40 meq PO ONETIME ONE Stop: 07/24/20 07:46 Last Admin: 07/24/20 07:50 Dose: 40 meq Documented by: Promethazine HCl (Phenergan) 12.5 mg IM ONETIME ONE Stop: 07/20/20 17:52 Last Admin: 07/20/20 18:06 Dose: 12.5 mg Documented by: Promethazine HCl (Phenergan) 25 mg PO Q6H PRN PRN Reason: Nausea/Vomiting - Exam General: Alert, Oriented HEENT: EOMI Neck: Supple Lungs: Clear to Auscultation, Normal Respiratory Effort Cardiovascular: Regular Rate, Regular Rhythm GI/Abdominal Exam: Soft, Other (soft abdomen; tenderness noted over LUQ and RUQ; no rebound tenderness ; no organomegaly noted this AM ) Extremities: Normal Inspection Neurological: No New Focal Deficit Psy/Mental Status: Alert, Normal Affect, Normal Mood Sepsis Event Note - Evaluation Sepsis Screening Result: No Definite Risk - Focused Exam Vital Signs: Vital Signs Temp Pulse Resp BP Pulse Ox 07/25/20 07:55 97.7 F 84 17 124/79 99 07/25/20 04:19 97.6 F 97 18 117/69 96 07/25/20 00:00 97.7 F 98 16 124/56 L 94 L - Problem List & Annotations (1) Pancreatitis SNOMED Code(s): 97274385 Code(s): K85.90 - ACUTE PANCREATITIS WITHOUT NECROSIS OR INFECTION, UNSP Status: Acute Current Visit: Yes Qualifiers: Chronicity: acute Pancreatitis type: unspecified pancreatitis type Acute pancreatitis complication: unspecified Qualified Code(s): K85.90 - Acute pancreatitis without necrosis or infection, unspecified - Problem List Review Problem List Initiated/Reviewed/Updated: Yes - My Orders Last 24 Hours: My Active Orders 07/25/20 08:30 Meropenem Premix [Meropenem in NS 1 GM/50 ML] 50 ml IV Q8H 07/26/20 05:11 CBC WITH AUTO DIFF [HEME] AM COMPREHENSIVE METABOLIC PN,CMP [CHEM] AM 07/27/20 05:11 CBC WITH AUTO DIFF [HEME] AM COMPREHENSIVE METABOLIC PN,CMP [CHEM] AM 07/28/20 05:11 CBC WITH AUTO DIFF [HEME] AM COMPREHENSIVE METABOLIC PN,CMP [CHEM] AM - Assessment Assessment:: Assessment: 1. Acute pancreatitis of unknown etiology 2. Leukocytosis:resolved 3. Hypertriglyceridemia. 4. Covid negative. 5 Hypokalemia : resolved Plan Admit to observation. Full code. I's and O's per routine. vitals per routine. 1. Acute pancreatitis: continue with IV fluids, bowel rest and pain control. Repeat abdominal CT overnight suggests concerns for necrotizing pancreatitis w. (worsening pancreatitis ) increasing fluid accumulation and worseing b.l pleural effusions. Pain controlled w. current regimen. Will start Meropenem 8 mg q 8hrs necrotizing pancreatitis Preliminary auto-immune panel ordered dsDNA, MATTHIAS, and IgG (AIP-SC criteria lab): pending (send out) Fluids: NS 150 cc/hr ; goal is 60 cc urine output Leukocytosis: resolved Normocytic anemia: no overt signs of bleeding ; most likely secondary to dilutions effect Hypoalbuminemia: decrease in PO status + dilutional ; continue to monitor No other significant PMH per patient. - Plan Plan:: I have seen and evaluated the patient and agree with the residents note unless specified in my note
[2020-07-25] MEDS ORDERED: Sodium Chloride 0.9% 1,000 ML IV SCH (09:52)
--- NOTE | 2020-07-25 11:06 | PCM.DCSUM1 ---
<Niki Mcarthur - Last Filed: 07/25/20 12:31> Discharge Summary - Hospital Course Free Text/Narrative:: Patient is a 24-year-old female with a significant past medical history of recurrent episodes of pancreatitis of unknown etiology presenting on July 20, 2020 for acute onset abdominal pain/discomfort, nausea, vomiting. Patient mentions on previous night having a sip of alcohol and otherwise some Madi food and noticed on the following day significant acute onset abdominal pain accompan ied with nausea and vomiting. Patient has a history of pancreatitis with first episode occurring at the age of [age]. Has had numerous work-up including ERCP/MRCP/CT scans showing no acute anatomical variance and other extensive work-up in [facility]. Patient cannot recall all the details of her work-up as this been a long time and she was very young during those particular episodes. Of note patient has had numerous episodes throughout the years not requiring extensive inpatient hospitalizations but has noticed a significant association with fatty food intake. ED course: Lipase 50,000 CT abdomen pelvis showed acute pancreatitis without any fluid accumulation/other acute pathologies/necrosis. Patient was started on morphine for pain control and started on IV fluids and made n.p.o. Hospital course: Abdominal ultrasound ordered secondary worsening right upper quadrant pain and elevated lipase suggesting no gallstones/biliary dilation. Edematous pancreas consistent with pancreatitis noted and consistent with previous imaging. Patient was started on IV fluids of 200 cc/h and made NPO. Day two: Patient was having increasing abdominal pain and due to history of unknown etiology for pancreatitis and MRCP was ordered on July 22, 2020 suggesting acute pancreatitis with a considerable fluid and fluid accumulation in the anterior pararenal space and some pancreatic ascites. Pancreatic duct however was normal in caliber but poorly visualized. Liver, spleen and adrenal glands and kidneys otherwise were within normal limits and no bowel abnormality was also noted. Pain control was initially difficult and switched from morphine to Dilaudid 1 mg every 3 hours with minimal relief. Day three of admission patient was initiated on a KILN PULLER pump with Dilaudid and after some titration pain control was marginally appreciated. Overnight on August 13, 2020 patient had increasing worsening abdominal pain; KILN PULLER pump was discontinued and morphine was initiated with moderate control of pain. Repeat CT abdomen pelvis: Focal developing area of necrotizing pancreatitis at the pancreatic tail near the splenic hilus noted. Worsening acute pancreatitis. Increasing free fluid paracolic gutters. Small bilateral pleural effusions. Discussed case with our surgeon who recommended transfer secondary to worsening changes and possible need for surgical intervention and possible need for TPN. Patient was in agreement with transfer. Transfer initiated in a.m. and sent to [facility] via ground ambulance with ALS. Patient was given 4 mg of morphine prior to departure with as needed doses given for during transfer; continued IV fluid 200 cc/h with n.p.o. status. Disposition: Transfer to acute/high level of care Condition: Stable Of note since we had contacted GI in [facility] with concerns about possible autoimmune processes; have ordered MATTHIAS/double-stranded DNA/IgG subclasses to start work-up for autoimmune pancreatitis; results are still p ending as they were send out Records from [facility] incomplete but available and was also sent to [facility] in [place]. - Discharge Data Discharge Date: 07/25/20 Discharge Disposition: DC/Tfer to Acute Hospital 02 Condition: Stable - Referral to Home Health Primary Care Physician: PCP Not In Area - Discharge Diagnosis/Problem(s) (1) Pancreatitis SNOMED Code(s): 90882636 ICD Code: K85.90 - ACUTE PANCREATITIS WITHOUT NECROSIS OR INFECTION, UNSP Status: Acute Qualifiers: Chronicity: acute Pancreatitis type: unspecified pancreatitis type Acute pancreatitis complication: unspecified Qualified Code(s): K85.90 - Acute pa ncreatitis without necrosis or infection, unspecified - Discharge Plan *PRESCRIPTION DRUG MONITORING PROGRAM REVIEWED*: No *COPY OF PRESCRIPTION DRUG MONITORING REPORT IN PATIENT LORENZO: No Home Medications: Home Meds . [No Known Home Meds] 07/20/20 [History] Oxygen Therapy Mode: Room Air Patient Handouts: Chronic Pancreatitis - Discharge Summary/Plan Comment DC Time >30 min.: No - Patient Data Vitals - Most Recent: Last Vital Signs Temp 97.7 F 07/25/20 07:55 Pulse 84 07/25/20 07:55 Resp 17 07/25/20 07:55 BP 124/79 07/25/20 07:55 Pulse Ox 99 07/25/20 07:55 Weight - Most Recent: 60.98 kg I&O - Last 24 hours: Intake & Output 07/24/20 07/25/20 07/25/20 22:59 06:59 14:59 Intake Total 1863 1850 Output Total 4000 1900 Balance -2137 -50 Lab Results - Last 24 hrs: Laboratory Results - last 24 hr 07/25/20 07/25/20 07/25/20 Range/Units 05:17 05:17 05:17 WBC 10.77 (4.0-11.0) K/uL RBC 4.28 L (4.30-5.90) M/uL Hgb 11.2 L (12.0-16.0) g/dL Hct 34.8 L (36.0-46.0) % MCV 81.3 (80.0-98.0) fL MCH 26.2 L (27.0-32.0) pg MCHC 32.2 (31.0-37.0) g/dL RDW Std Deviation 42.6 (28.0-62.0) fl RDW Coeff of Maryam 14 (11.0-15.0) % Plt Count 205 (150-400) K/uL MPV 9.30 (7.40-12.00) fL Neut % (Auto) 75.8 (48.0-80.0) % Lymph % (Auto) 11.8 L (16.0-40.0) % Hoke % (Auto) 10.0 (0.0-15.0) % Eos % (Auto) 2.2 (0.0-7.0) % Baso % (Auto) 0.2 (0.0-1.5) % Neut # (Auto) 8.2 H (1.4-5.7) K/uL Lymph # (Auto) 1.3 (0.6-2.4) K/uL Hoke # (Auto) 1.1 H (0.0-0.8) K/uL Eos # (Auto) 0.2 (0.0-0.7) K/uL Baso # (Auto) 0.0 (0.0-0.1) K/uL Nucleated RBC % 0.0 /100WBC Nucleated RBCs # 0 K/uL Sodium 137 (136-145) mmol/L Potassium 3.5 (3.5-5.1) mmol/L Chloride 101 (98-107) mmol/L Carbon Dioxide 19.4 L (21.0-32.0) mmol/L BUN 4 L (7.0-18.0) mg/dL Creatinine 0.6 (0.6-1.0) mg/dL Est Cr Clr Drug Dosing 124.85 mL/min Estimated GFR (MDRD) > 60.0 ml/min Glucose 79 (74-106) mg/dL Calcium 8.7 (8.5-10.1) mg/dL Total Bilirubin 0.6 (0.2-1.0) mg/dL AST 12 L (15-37) IU/L ALT 25 (14-63) IU/L Alkaline Phosphatase 82 (46-116) U/L Total Protein 6.6 (6.4-8.2) g/dL Albumin 2.6 L (3.4-5.0) g/dL Globulin 4.0 (2.6-4.0) g/dL Albumin/Globulin Ratio 0.7 L (0.9-1.6) Lipase 457 H (73-393) U/L Med Orders - Current: Current Medications Acetaminophen (Tylenol Extra Strength) 500 mg PO Q6H PRN PRN Reason: Pain Last Admin: 07/22/20 21:23 Dose: 500 mg Documented by: Diphenhydramine HCl (Benadryl) 25 mg IVPUSH Q6H PRN PRN Reason: Itching Heparin Sodium (Porcine) (Heparin Sodium) 5,000 units SUBCUT Q12H [facility] Last Admin: 07/25/20 05:34 Dose: 5,000 units Documented by: Meropenem/Sodium Chloride (Meropenem In Ns 1 Gm/50 Ml) 50 mls @ 100 mls/hr IV Q8H KASSANDRA Last Admin: 07/25/20 09:25 Dose: 100 mls/hr Documented by: Sodium Chloride (Normal Saline) 1,000 mls @ 200 mls/hr IV CONTINUOUS KASSANDRA Ibuprofen (Motrin) 400 mg PO Q6H PRN PRN Reason: Pain (mild 1-3) Last Admin: 07/23/20 17:03 Dose: 400 mg Documented by: Ketorolac Tromethamine (Toradol) 15 mg IVPUSH Q6H PRN PRN Reason: Pain Stop: 07/30/20 04:39 Melatonin (Melatonin) 3 mg PO BEDTIME PRN PRN Reason: Insomnia Morphine Sulfate (Morphine) 4 mg IVPUSH Q3H PRN PRN Reason: Pain Last Admin: 07/25/20 09:03 Dose: 4 mg Documented by: Naloxone HCl (Narcan) 0.04 mg IVPUSH Q3M PRN PRN Reason: Respiratory Depression Omeprazole (Omeprazole) 20 mg PO ACBREAKFAST KASSANDRA Last Admin: 07/25/20 07:37 Dose: 20 mg Documented by: Ondansetron HCl (Zofran) 4 mg IVPUSH Q4H PRN PRN Reason: Nausea/Vomiting Last Admin: 07/21/20 05:00 Dose: 4 mg Documented by: Promethazine HCl (Phenergan) 12.5 mg IM Q6H PRN PRN Reason: Nausea/Vomiting Sodium Chloride (Saline Flush) 10 ml FLUSH ASDIRECTED PRN PRN Reason: Keep Vein Open Last Admin: 07/20/20 14:52 Dose: 10 ml Documented by: Sodium Chloride (Saline Flush) 2.5 ml FLUSH ASDIRECTED PRN PRN Reason: Keep Vein Open Last Admin: 07/20/20 14:51 Dose: 2.5 ml Documented by: Discontinued Medications Hydromorphone HCl (Dilaudid) 1 mg IVPUSH ONETIME ONE Stop: 07/20/20 14:46 Last Admin: 07/20/20 14:50 Dose: 1 mg Documented by: Hydromorphone HCl (Dilaudid) 1 mg IVPUSH ONETIME ONE Stop: 07/20/20 15:12 Last Admin: 07/20/20 15:15 Dose: 1 mg Documented by: Hydromorphone HCl (Dilaudid) 1 mg IVPUSH ONETIME ONE Stop: 07/20/20 17:14 Last Admin: 07/20/20 17:20 Dose: 1 mg Documented by: Hydromorphone HCl (Dilaudid) 0.5 mg IVPUSH Q2H PRN PRN Reason: Pain Hydromorphone HCl (Dilaudid) 0.5 mg IVPUSH Q1H PRN PRN Reason: Pain Last Admin: 07/22/20 08:04 Dose: 0.5 mg Documented by: Hydromorphone HCl (Dilaudid) 0.5 mg IVPUSH Q2H PRN PRN Reason: Pain Last Admin: 07/23/20 07:47 Dose: 0.5 mg Documented by: Hydromorphone HCl (Dilaudid) 0.5 mg IVPUSH ONETIME ONE Stop: 07/23/20 08:47 Last Admin: 07/23/20 08:57 Dose: 0.5 mg Documented by: Hydromorphone HCl (Dilaudid) 1 mg IVPUSH Q4H PRN PRN Reason: Pain Stop: 07/23/20 14:00 Last Admin: 07/23/20 11:37 Dose: 1 mg Documented by: Sodium Chloride (Normal Saline) 1,000 mls @ 999 mls/hr IV .Bolus ONE Stop: 07/20/20 14:17 Last Admin: 07/20/20 13:34 Dose: 999 mls/hr Documented by: Sodium Chloride (Normal Saline) 1,000 mls @ 999 mls/hr IV .Bolus ONE Stop: 07/20/20 17:13 Last Admin: 07/20/20 17:02 Dose: 999 mls/hr Documented by: Sodium Chloride (Normal Saline) 1,000 mls @ 200 mls/hr IV ASDIRECTED KASSANDRA Last Admin: 07/22/20 06:59 Dose: 200 mls/hr Documented by: Sodium Chloride (Normal Saline) 1,000 mls @ 999 mls/hr IV STAT ONE Stop: 07/20/20 20:06 Last Admin: 07/20/20 19:27 Dose: 999 mls/hr Documented by: Sodium Chloride (Normal Saline) 1,000 mls @ 999 mls/hr IV STAT ONE Stop: 07/20/20 20:21 Last Admin: 07/20/20 20:44 Dose: 999 mls/hr Documented by: Potassium Chloride/Sodium Chloride (Normal Saline With 40 Meq Kcl) 1,000 mls @ 150 mls/hr IV ASDIRECTED KASSANDRA Last Admin: 07/22/20 09:23 Dose: 200 mls/hr Documented by: Sodium Chloride (Normal Saline) 1,000 mls @ 150 mls/hr IV CONTINUOUS KASSANDRA Last Admin: 07/25/20 01:59 Dose: 150 mls/hr Documented by: Hydromorphone HCl 10 mg/ (Sodium Chloride) 50 mls @ 0.5 mls/hr IV ASDIRECTED KASSANDRA; Protocol Last Infusion: 07/25/20 03:14 Dose: 0 mg/hr, 0 mls/hr Documented by: Iopamidol (Isovue Multipack-370 (76%)) 72 ml IVPUSH ONETIME ONE Stop: 07/20/20 14:43 Last Admin: 07/20/20 14:42 Dose: 72 ml Documented by: Iopamidol (Isovue Multipack-370 (76%)) 75 ml IVPUSH ONETIME STA Stop: 07/25/20 07:32 Last Admin: 07/25/20 07:32 Dose: 75 ml Documented by: Ketorolac Tromethamine (Toradol) 15 mg IM ONETIME ONE Stop: 07/25/20 03:24 Last Admin: 07/25/20 03:37 Dose: 15 mg Documented by: Lorazepam (Ativan) 1 mg IVPUSH ONETIME ONE Stop: 07/20/20 18:53 Last Admin: 07/20/20 19:24 Dose: 1 mg Documented by: Lorazepam (Ativan) 1 mg IVPUSH ONETIME ONE Stop: 07/23/20 19:07 Last Admin: 07/23/20 19:21 Dose: 1 mg Documented by: Lorazepam (Ativan) 1 mg IVPUSH ONETIME ONE Stop: 07/24/20 07:46 Last Admin: 07/24/20 07:50 Dose: 1 mg Documented by: Lorazepam (Ativan) 1 mg IVPUSH ONETIME ONE Stop: 07/25/20 03:25 Last Admin: 07/25/20 04:06 Dose: 1 mg Documented by: Morphine Sulfate (Morphine) 4 mg IVPUSH ONETIME ONE Stop: 07/20/20 13:18 Last Admin: 07/20/20 13:37 Dose: 4 mg Documented by: Ondansetron HCl (Zofran) 4 mg IVPUSH ONETIME ONE Stop: 07/20/20 13:18 Last Admin: 07/20/20 13:35 Dose: 4 mg Documented by: Ondansetron HCl (Zofran) 8 mg IVPUSH ONETIME ONE Stop: 07/20/20 17:01 Last Admin: 07/20/20 17:09 Dose: Not Given Documented by: Ondansetron HCl (Zofran) 4 mg IVPUSH ONETIME ONE Stop: 07/20/20 17:06 Last Admin: 07/20/20 17:07 Dose: 4 mg Documented by: Ondansetron HCl (Zofran) 4 mg IVPUSH Q6H PRN PRN Reason: Nausea/Vomiting Potassium Chloride (Klor-Con M20) 40 meq PO ONETIME ONE Stop: 07/22/20 08:21 Potassium Chloride (Klor-Con M20) 40 meq PO ONETIME ONE Stop: 07/23/20 07:58 Last Admin: 07/23/20 08:36 Dose: 40 meq Documented by: Potassium Chloride (Klor-Con M20) 40 meq PO ONETIME ONE Stop: 07/24/20 07:46 Last Admin: 07/24/20 07:50 Dose: 40 meq Documented by: Promethazine HCl (Phenergan) 12.5 mg IM ONETIME ONE Stop: 07/20/20 17:52 Last Admin: 07/20/20 18:06 Dose: 12.5 mg Documented by: Promethazine HCl (Phenergan) 25 mg PO Q6H PRN PRN Reason: Nausea/Vomiting <Barbara Ribeiro - Last Filed: 07/27/20 14:40> Discharge Summary - Hospital Course Free Text/Narrative:: I have seen and evaluated the patient and agree with the residents note unless specified in my note - Referral to Home Health Primary Care Physician: PCP Not In Area - Discharge Diagnosis/Problem(s) (1) Pancreatitis SNOMED Code(s): 69196385 ICD Code: K85.90 - ACUTE PANCREATITIS WITHOUT NECROSIS OR INFECTION, UNSP Status: Acute Qualifiers: Chronicity: acute Pancreatitis type: unspecified pancreatitis type Acute pancreatitis complication: unspecified Qualified Code(s): K85.90 - Acute pancreatitis without necrosis or infection, unspecified - Patient Data Vitals - Most Recent: Last Vital Signs Temp 36.5 C 07/25/20 12:00 Pulse 92 07/25/20 12:00 Resp 20 07/25/20 12:00 BP 138/83 07/25/20 12:00 Pulse Ox 99 07/25/20 07:55 Med Orders - Current: Current Medications Discontinued Medications Acetaminophen (Tylenol Extra Strength) 500 mg PO Q6H PRN PRN Reason: Pain Last Admin: 07/22/20 21:23 Dose: 500 mg Documented by: Diphenhydramine HCl (Benadryl) 25 mg IVPUSH Q6H PRN PRN Reason: Itching Heparin Sodium (Porcine) (Heparin Sodium) 5,000 units SUBCUT Q12H KASSANDRA Last Admin: 07/25/20 05:34 Dose: 5,000 units Documented by: Hydromorphone HCl (Dilaudid) 1 mg IVPUSH ONETIME ONE Stop: 07/20/20 14:46 Last Admin: 07/20/20 14:50 Dose: 1 mg Documented by: Hydromorphone HCl (Dilaudid) 1 mg IVPUSH ONETIME ONE Stop: 07/20/20 15:12 Last Admin: 07/20/20 15:15 Dose: 1 mg Documented by: Hydromorphone HCl (Dilaudid) 1 mg IVPUSH ONETIME ONE Stop: 07/20/20 17:14 Last Admin: 07/20/20 17:20 Dose: 1 mg Documented by: Hydromorphone HCl (Dilaudid) 0.5 mg IVPUSH Q2H PRN PRN Reason: Pain Hydromorphone HCl (Dilaudid) 0.5 mg IVPUSH Q1H PRN PRN Reason: Pain Last Admin: 07/22/20 08:04 Dose: 0.5 mg Documented by: Hydromorphone HCl (Dilaudid) 0.5 mg IVPUSH Q2H PRN PRN Reason: Pain Last Admin: 07/23/20 07:47 Dose: 0.5 mg Documented by: Hydromorphone HCl (Dilaudid) 0.5 mg IVPUSH ONETIME ONE Stop: 07/23/20 08:47 Last Admin: 07/23/20 08:57 Dose: 0.5 mg Documented by: Hydromorphone HCl (Dilaudid) 1 mg IVPUSH Q4H PRN PRN Reason: Pain Stop: 07/23/20 14:00 Last Admin: 07/23/20 11:37 Dose: 1 mg Documented by: Sodium Chloride (Normal Saline) 1,000 mls @ 999 mls/hr IV .Bolus ONE Stop: 07/20/20 14:17 Last Admin: 07/20/20 13:34 Dose: 999 mls/hr Documented by: Sodium Chloride (Normal Saline) 1,000 mls @ 999 mls/hr IV .Bolus ONE Stop: 07/20/20 17:13 Last Admin: 07/20/20 17:02 Dose: 999 mls/hr Documented by: Sodium Chloride (Normal Saline) 1,000 mls @ 200 mls/hr IV ASDIRECTED KASSANDRA Last Admin: 07/22/20 06:59 Dose: 200 mls/hr Documented by: Sodium Chloride (Normal Saline) 1,000 mls @ 999 mls/hr IV STAT ONE Stop: 07/20/20 20:06 Last Admin: 07/20/20 19:27 Dose: 999 mls/hr Documented by: Sodium Chloride (Normal Saline) 1,000 mls @ 999 mls/hr IV STAT ONE Stop: 07/20/20 20:21 Last Admin: 07/20/20 20:44 Dose: 999 mls/hr Documented by: Potassium Chloride/Sodium Chloride (Normal Saline With 40 Meq Kcl) 1,000 mls @ 150 mls/hr IV ASDIRECTED KASSANDRA Last Admin: 07/22/20 09:23 Dose: 200 mls/hr Documented by: Sodium Chloride (Normal Saline) 1,000 mls @ 150 mls/hr IV CONTINUOUS KASSANDRA Last Admin: 07/25/20 01:59 Dose: 150 mls/hr Documented by: Hydromorphone HCl 10 mg/ (Sodium Chloride) 50 mls @ 0.5 mls/hr IV ASDIRECTED KASSANDRA; Protocol Last Infusion: 07/25/20 03:14 Dose: 0 mg/hr, 0 mls/hr Documented by: Meropenem/Sodium Chloride (Meropenem In Ns 1 Gm/50 Ml) 50 mls @ 100 mls/hr IV Q8H KASSANDRA Last Admin: 07/25/20 09:25 Dose: 100 mls/hr Documented by: Sodium Chloride (Normal Saline) 1,000 mls @ 200 mls/hr IV CONTINUOUS KASSANDRA Last Admin: 07/25/20 11:14 Dose: 200 mls/hr Documented by: Ibuprofen (Motrin) 400 mg PO Q6H PRN PRN Reason: Pain (mild 1-3) Last Admin: 07/23/20 17:03 Dose: 400 mg Documented by: Iopamidol (Isovue Multipack-370 (76%)) 72 ml IVPUSH ONETIME ONE Stop: 07/20/20 14:43 Last Admin: 07/20/20 14:42 Dose: 72 ml Documented by: Iopamidol (Isovue Multipack-370 (76%)) 75 ml IVPUSH ONETIME STA Stop: 07/25/20 07:32 Last Admin: 07/25/20 07:32 Dose: 75 ml Documented by: Ketorolac Tromethamine (Toradol) 15 mg IM ONETIME ONE Stop: 07/25/20 03:24 Last Admin: 07/25/20 03:37 Dose: 15 mg Documented by: Ketorolac Tromethamine (Toradol) 15 mg IVPUSH Q6H PRN PRN Reason: Pain Stop: 07/30/20 04:39 Last Admin: 07/25/20 11:16 Dose: 15 mg Documented by: Lorazepam (Ativan) 1 mg IVPUSH ONETIME ONE Stop: 07/20/20 18:53 Last Admin: 07/20/20 19:24 Dose: 1 mg Documented by: Lorazepam (Ativan) 1 mg IVPUSH ONETIME ONE Stop: 07/23/20 19:07 Last Admin: 07/23/20 19:21 Dose: 1 mg Documented by: Lorazepam (Ativan) 1 mg IVPUSH ONETIME ONE Stop: 07/24/20 07:46 Last Admin: 07/24/20 07:50 Dose: 1 mg Documented by: Lorazepam (Ativan) 1 mg IVPUSH ONETIME ONE Stop: 07/25/20 03:25 Last Admin: 07/25/20 04:06 Dose: 1 mg Documented by: Melatonin (Melatonin) 3 mg PO BEDTIME PRN PRN Reason: Insomnia Morphine Sulfate (Morphine) 4 mg IVPUSH ONETIME ONE Stop: 07/20/20 13:18 Last Admin: 07/20/20 13:37 Dose: 4 mg Documented by: Morphine Sulfate (Morphine) 4 mg IVPUSH Q3H PRN PRN Reason: Pain Last Admin: 07/25/20 12:24 Dose: 4 mg Documented by: Naloxone HCl (Narcan) 0.04 mg IVPUSH Q3M PRN PRN Reason: Respiratory Depression Omeprazole (Omeprazole) 20 mg PO ACBREAKFAST KASSANDRA Last Admin: 07/25/20 07:37 Dose: 20 mg Documented by: Ondansetron HCl (Zofran) 4 mg IVPUSH ONETIME ONE Stop: 07/20/20 13:18 Last Admin: 07/20/20 13:35 Dose: 4 mg Documented by: Ondansetron HCl (Zofran) 8 mg IVPUSH ONETIME ONE Stop: 07/20/20 17:01 Last Admin: 07/20/20 17:09 Dose: Not Given Documented by: Ondansetron HCl (Zofran) 4 mg IVPUSH ONETIME ONE Stop: 07/20/20 17:06 Last Admin: 07/20/20 17:07 Dose: 4 mg Documented by: Ondansetron HCl (Zofran) 4 mg IVPUSH Q6H PRN PRN Reason: Nausea/Vomiting Ondansetron HCl (Zofran) 4 mg IVPUSH Q4H PRN PRN Reason: Nausea/Vomiting Last Admin: 07/21/20 05:00 Dose: 4 mg Documented by: Potassium Chloride (Klor-Con M20) 40 meq PO ONETIME ONE Stop: 07/22/20 08:21 Potassium Chloride (Klor-Con M20) 40 meq PO ONETIME ONE Stop: 07/23/20 07:58 Last Admin: 07/23/20 08:36 Dose: 40 meq Documented by: Potassium Chloride (Klor-Con M20) 40 meq PO ONETIME ONE Stop: 07/24/20 07:46 Last Admin: 07/24/20 07:50 Dose: 40 meq Documented by: Promethazine HCl (Phenergan) 12.5 mg IM ONETIME ONE Stop: 07/20/20 17:52 Last Admin: 07/20/20 18:06 Dose: 12.5 mg Documented by: Promethazine HCl (Phenergan) 25 mg PO Q6H PRN PRN Reason: Nausea/Vomiting Promethazine HCl (Phenergan) 12.5 mg IM Q6H PRN PRN Reason: Nausea/Vomiting Sodium Chloride (Saline Flush) 10 ml FLUSH ASDIRECTED PRN PRN Reason: Keep Vein Open Last Admin: 07/20/20 14:52 Dose: 10 ml Documented by: Sodium Chloride (Saline Flush) 2.5 ml FLUSH ASDIRECTED PRN PRN Reason: Keep Vein Open Last Admin: 07/20/20 14:51 Dose: 2.5 ml Documented by:
== END 2020-07-25 15:00 | DRG 439 ==
LOC: MW.ED 13:17 → MW.MS 16:56 → OBSVTOIN 07-22 10:06 → MW.MS 07-22 10:59
PROVIDERS: ADMIT Internal Medicine; ATTEND Internal Medicine
DX: K85.90 Acute pancreatitis without necrosis or infection, unspecified (principal); R18.8 Other ascites; E78.1 Pure hyperglyceridemia; E87.6 Hypokalemia; E88.09 Other disorders of plasma-protein metabolism, not elsewhere classified; D64.9 Anemia, unspecified; Z20.822 Contact with and (suspected) exposure to COVID-19
CPT/HCPCS: 36415; 74018; 74018-26; 74170; 74170-26; 74177; 74177-26; 74181; 74181-26; 76705; 76705-26; 80053; 82150; 82787; 83605; 83690; 83735; 84478; 84703; 85025; 86038; 86225; 96361; 96372; 96374; 96375; 96376; 99219; 99225; 99232; 99238; 99284; 99285-25; A9270-GY; G0378; J1170; J1644; J1885; J2060; J2185; J2270; J2405; J2550; J3480; J7030; Q9967; U0002